=== PATIENT | male | born 1975 | race African-American/Black ===

== ENCOUNTER 2019-12-13 00:31 | Inpatient (IN) | payer MEDICAID ==
[~2019-12-13] VITALS: Ht 177.8 cm; Wt 86.5 kg
[2019-12-13] VITALS (83 sets, daily range): BP systolic 111–232; BP diastolic 75–160; Ht 177.8 cm; Wt 86.5 kg
[2019-12-13] MEDS ORDERED: BP MED (00:44)
--- NOTE | 2019-12-13 01:17 | NUR ---
SECOND NITRO GIVEN AFTER B/P RECHECK 244/160.
--- NOTE | 2019-12-13 01:26 | NUR ---
B/P 210/129. 3'D NITRO GIVEN.
--- NOTE | 2019-12-13 01:33 | NUR ---
B/P 195/137 AFTER 3'D NITRO. WILL ALERT DOCTOR.
[2019-12-13 01:41] LABS: BASOPHILS 0.4 % (0-2); EOSINOPHILS 1.3 % (0-7); HEMATOCRIT 38.9 % (42.0-54.0); HEMOGLOBIN 13.9 g/dL (13.5-17.5); IMMATURE GRANULOCYTES 0.4 % (0-5); LYMPHOCYTES 19.2 % (15-50); MCH 32.6 pg (26.0-34.0); MCHC 35.7 g/dL (31.0-37.0); MCV 91.3 fL (80.0-100.0); MEAN PLATELET VOLUME 10.6 fL (7.4-10.4); MONOCYTES 5.9 % (2-11); NEUTROPHILS 72.8 % (40-80); PLATELET COUNT 262 10x3/uL (130-400); RBC 4.26 10x6/uL (4.20-6.10); RDW 13.7 % (11.5-14.5); WBC 11.2 10x3/uL (4.8-10.8)
[2019-12-13 02:00] LABS: APTT 36.2 SECONDS (22.8-39.4); INR 1.02 (0.85-1.17); PROTIME 13.3 SECONDS (11.6-15.0)
[2019-12-13 02:01] LABS: D-DIMER-QUANTITATIVE 1.37 ug/mLFEU (0.20-0.54)
[2019-12-13 02:06] LABS: ALBUMIN 2.9 g/dL (3.4-5.0); ALKALINE PHOSPHATASE 116 U/L (30-120); ALT (SGPT) 18 U/L (10-68); BILIRUBIN - TOTAL 0.69 mg/dL (0.2-1.3); CALC OSMOLALITY 277 mosm/kg (275-300); CALCIUM 7.8 mg/dL (8.5-10.1); CARBON DIOXIDE 23.5 mmol/L (21.0-32.0); CHLORIDE - SERUM 100 mmol/L (98-107); CKMB 1.8 U/L (0.0-3.6); CREATINE KINASE 298 UL (21-232); CREATININE - SERUM 5.8 mg/dL (0.6-1.3); GLUCOSE 116 mg/dL (74-106); MAGNESIUM - SERUM 1.5 mg/dL (1.8-2.4); PRO BNP 13139 pg/mL (0-125); SODIUM 135 mmol/L (136-145); UREA NITROGEN 31 mg/dL (7-18); eGFR NON AFRICAN AMERICAN 11 mL/min (90-120)
[2019-12-13 02:11] LABS: UDS - AMPHET NEGATIVE QUAL (NEGATIVE); UDS - BARB NEGATIVE QUAL (NEGATIVE); UDS - BENZO NEGATIVE QUAL (NEGATIVE); UDS - COCAINE NEGATIVE QUAL (NEGATIVE); UDS - OPIATE NEGATIVE QUAL (NEGATIVE); UDS - PCP NEGATIVE QUAL (NEGATIVE); UDS - THC NEGATIVE QUAL (NEGATIVE)
[2019-12-13 02:14] LABS: BILIRUBIN NEGATIVE (NEGATIVE); KETONE NEGATIVE (NEGATIVE); NITRITE NEGATIVE (NEGATIVE); UROBILINOGEN NORMAL mg/dL (< 2)
[2019-12-13 02:16] LABS: BACTERIA FEW HPF (NONE SEEN); EPITHELIAL CELLS 0-5 /hpf (0-5); WHITE CELLS - URINE 0-5 HPF (0-1)
[2019-12-13 02:22] LABS: POTASSIUM - SERUM 2.6 mmol/L (3.5-5.1); TROPONIN-I 0.094 ng/mL (0.000-0.060)
--- NOTE | 2019-12-13 03:34 | NUR ---
PT STATES FEELING SOME BETTER. HAS VOIDED 450 CC'S.
--- NOTE | 2019-12-13 03:52 | NUR ---
COVID SWAB COLLECTED FOR ADMISSION. CVICU MADE AWARE.
[2019-12-13 04:53] LABS: BASOPHILS 0.5 % (0-2); EOSINOPHILS 0.6 % (0-7); HEMATOCRIT 40.4 % (42.0-54.0); HEMOGLOBIN 14.2 g/dL (13.5-17.5); IMMATURE GRANULOCYTES 0.5 % (0-5); LYMPHOCYTES 16.6 % (15-50); MCH 32.5 pg (26.0-34.0); MCHC 35.1 g/dL (31.0-37.0); MCV 92.4 fL (80.0-100.0); MEAN PLATELET VOLUME 10.2 fL (7.4-10.4); MONOCYTES 4.6 % (2-11); NEUTROPHILS 77.2 % (40-80); PLATELET COUNT 268 10x3/uL (130-400); RBC 4.37 10x6/uL (4.20-6.10); RDW 13.7 % (11.5-14.5); WBC 12.9 10x3/uL (4.8-10.8)
[2019-12-13 05:47] LABS: ALBUMIN 2.9 g/dL (3.4-5.0); BILIRUBIN - TOTAL 0.84 mg/dL (0.2-1.3); CALCIUM 7.9 mg/dL (8.5-10.1); CARBON DIOXIDE 24.7 mmol/L (21.0-32.0); CREATININE - SERUM 5.7 mg/dL (0.6-1.3); PROTEIN - SERUM 7.1 g/dL (6.4-8.2)
[2019-12-13 05:48] LABS: ANION GAP 14.2 mmol/L (8-16); MAGNESIUM - SERUM 1.9 mg/dL (1.8-2.4); POTASSIUM - SERUM 2.9 mmol/L (3.5-5.1); TROPONIN-I 0.097 ng/mL (0.000-0.060)
--- NOTE | 2019-12-13 08:06 | NUR ---
NTG DRIP INCREASED TO 35MCG/MIN. BP 156/115 AND HR 117 AFTER BEING UP TO BR.
--- NOTE | 2019-12-13 09:40 | NUR ---
WORSENING RALES AND SOB. ADRIANA TY APRN HERE AND INFORMED OF HR, BP, K+ AND MG. ORDERS TAKEN.
--- NOTE | 2019-12-13 10:00 | NUR ---
LOPRESSOR 5MG AND BUMEX 2MG IVP GIVEN. CONTINUES TO HAVE SEVERE SOB. DIAPHORETIC. INCREASING NTG DRIP BY 5MCG/MIN FOR HYPERTENSION. O2 INCREASED TO 6L/M SPO2 OF 88%.
--- NOTE | 2019-12-13 10:15 | NUR ---
ADRIANA TY APRN INFORMED OF CONTINUED HYPERTENTION, TACHYCARDIA AND SOB. REPEAT LOPRESSOR 5MG IVP. RESPIRATORY HERE. PLACED ON NON-REBREATHER WITH INCREASE OF SPO2 TO 94%
--- NOTE | 2019-12-13 10:45 | NUR ---
VERY ANXIOUS. THRASHING IN BED. HR 120-130 SINUS TACH. BP 212/136. NTG DRIP NOW AT 50MCG/MIN WITHOUT EFFECT ON BP. ADRIANA TY PAGED. [facility] 10MEQ RIDER 1 OF 4 IN PROGRESS.
--- NOTE | 2019-12-13 11:51 | NUR ---
DR. CABALLERO NOTIFIED OF CONSULT AND PT CONDITION. ORDERS FOR BIPAP 14/7 AT 100% RECEIVED.
--- NOTE | 2019-12-13 12:00 | NUR ---
PLACED ON BIPAP BY RT.
--- NOTE | 2019-12-13 12:30 | NUR ---
RESTING WITH EYES CLOSED. RESPITATORY RATE IN 40S DOWN FROM 60S.
--- NOTE | 2019-12-13 13:00 | NUR ---
ABG SHOW PO2 OF 260. PLACED BACK ON NC AT 10L/M. RENAL DIET SERVED.
--- NOTE | 2019-12-13 15:30 | NUR ---
UP TO BEDSIDE COMMODE. INSTRUCTED TO CALL FOR HELP BEFORE GETTING UP. RETURNED TO BED WITHOUT ASSIST. SOFT STOOL AND URINE EXPELLED.
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
--- NOTE | 2019-12-13 17:30 | NUR ---
CONTINUES TO DESAT. REFUSING O2. SINUS TACH, HYPERTENSIVE. SEE VITAL SIGNS.
--- NOTE | 2019-12-13 17:52 | NUR ---
patient stated he did want to be a full code. refusal of bipap and vent at this time. patient breathing 50 breaths a minute. paged roland.
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
--- NOTE | 2019-12-13 18:55 | NUR ---
JANELL CHOW, YAW, HERE. SEDATED AMD ORALLY INTUBATED. WRIST RESTRAINTS ON BILATERALLY.
--- NOTE | 2019-12-13 19:10 | NUR ---
REPORT TO ISAÍAS CONTRERAS RN
[2019-12-14] VITALS (22 sets, daily range): BP systolic 110–147; BP diastolic 59–97
[2019-12-14 05:04] LABS: BASOPHILS 0.4 % (0-2); EOSINOPHILS 0.2 % (0-7); HEMATOCRIT 35.7 % (42.0-54.0); HEMOGLOBIN 12.4 g/dL (13.5-17.5); IMMATURE GRANULOCYTES 0.4 % (0-5); LYMPHOCYTES 13.7 % (15-50); MCH 32.4 pg (26.0-34.0); MCHC 34.7 g/dL (31.0-37.0); MCV 93.2 fL (80.0-100.0); MEAN PLATELET VOLUME 10.7 fL (7.4-10.4); MONOCYTES 5.2 % (2-11); NEUTROPHILS 80.1 % (40-80); PLATELET COUNT 215 10x3/uL (130-400); RBC 3.83 10x6/uL (4.20-6.10); RDW 13.8 % (11.5-14.5)
[2019-12-14 05:31] LABS: ALBUMIN 2.5 g/dL (3.4-5.0); BILIRUBIN - TOTAL 0.38 mg/dL (0.2-1.3); CARBON DIOXIDE 21.7 mmol/L (21.0-32.0); CREATININE - SERUM 6.1 mg/dL (0.6-1.3); PHOSPHOROUS 4.1 mg/dL (2.5-4.9); PROTEIN - SERUM 5.9 g/dL (6.4-8.2)
[2019-12-14 05:37] LABS: ANION GAP 16.3 mmol/L (8-16); MAGNESIUM - SERUM 2.8 mg/dL (1.8-2.4)
--- NOTE | 2019-12-14 10:58 | NUR ---
PT TRANSFERED TO 2301. REPORT GIVEN TO MICHELLE VANCE.
--- NOTE | 2019-12-14 23:46 | NUR ---
PT.S MOM CALLED, PPROVIDED PASSCODE AND WAS GIVEN AN UPDATE
[2019-12-15] VITALS (22 sets, daily range): BP systolic 114–157; BP diastolic 77–110
[2019-12-15 05:15] LABS: BASOPHILS 0.8 % (0-2); EOSINOPHILS 2.2 % (0-7); HEMATOCRIT 31.3 % (42.0-54.0); HEMOGLOBIN 10.9 g/dL (13.5-17.5); IMMATURE GRANULOCYTES 0.6 % (0-5); LYMPHOCYTES 31.2 % (15-50); MCH 32.9 pg (26.0-34.0); MCHC 34.8 g/dL (31.0-37.0); MCV 94.6 fL (80.0-100.0); MEAN PLATELET VOLUME 10.3 fL (7.4-10.4); MONOCYTES 6.3 % (2-11); NEUTROPHILS 58.9 % (40-80); PLATELET COUNT 219 10x3/uL (130-400); RBC 3.31 10x6/uL (4.20-6.10)
[2019-12-15 05:32] LABS: WBC 7.1 10x3/uL (4.8-10.8)
[2019-12-15 05:43] LABS: ALBUMIN 2.2 g/dL (3.4-5.0); BILIRUBIN - TOTAL 0.45 mg/dL (0.2-1.3); CARBON DIOXIDE 22.7 mmol/L (21.0-32.0); CREATININE - SERUM 6.3 mg/dL (0.6-1.3); MAGNESIUM - SERUM 2.1 mg/dL (1.8-2.4); PROTEIN - SERUM 6.1 g/dL (6.4-8.2)
[2019-12-15 06:51] LABS: ANION GAP 15.2 mmol/L (8-16); PHOSPHOROUS 2.9 mg/dL (2.5-4.9); POTASSIUM - SERUM 4.9 mmol/L (3.5-5.1)
[2019-12-15 06:52] LABS: CALCIUM 6.8 mg/dL (8.5-10.1)
--- NOTE | 2019-12-15 07:00 | NUR ---
AM ROUNDS COMPLETED. INTRODUCED MYSELF TO PT PRIMARY RN FOR TODAYS SHIFT. PT IS SEDATED AND ON VENT. VSS AND BEING MONITERED. SHIFT ASSESSMENT COMPLETED. NASH DRAINING CLEAR YELLOW URINE TO GRAVITY OFF L.SIDE OF BED. PT HAS A L.HAND PIV WITH BUMEX INFUSING. PT HAS A L.UPPER ARM PIV WITH NS AND KCL @50ML/HR INFUSING. PT HAS A R.FA PIV WITH FENTANYL DRIP AND PROPOFOL INFUSING. ALL SITES HAVE SWAB CAPS AND DRSG ADHERED TO SKIN CDI. SCDS IN PLACE. NO IMMEDIATE NEEDS NOTED AT THIS TIME. WILL REVIEW LABS, CHART AND ORDERS AND BEGIN PLAN OF CARE.
--- NOTE | 2019-12-15 09:15 | NUR ---
REPOSITIONED PT IN BED FOR COMFORT. PT AWAKE AT THIS TIME AND HAS EYES OPEN BUT WILL NOT STAY AWAKE OR FOLLOW COMMANDS. NO NEEDS IDENTIFIED AT THIS TIME. WILL CPOC.
--- NOTE | 2019-12-15 10:48 | NUR ---
Nutrition follow-up: Pt now in ICU; intubated, sedated with propofol @ 19 ml/hr Labs reviewed Wt: 189# Recommend starting Nepro @ 10 ml/hr with increase to 40 ml/hr RDN following.
[2019-12-15 12:24] LABS: COMPLEMENT C4 43.7 mg/dL (17.4-52.2)
[2019-12-15 13:07] LABS: ERYTHROCYTE SEDIMENTATION RATE 101 mm/hr (0-15)
--- NOTE | 2019-12-15 14:37 | NUR ---
REPOSITIONED PT IN BED FOR COMFORT. PT DOING WELL AND VSS. NO IMMEDIATE NEEDS NOTED AT THIS TIME. PT REMAINS VERY CALM AND SEDATED. WILL CPOC.
--- NOTE | 2019-12-15 16:23 | NUR ---
WEANED PTS FENTANYL DRIP TO 200MCG/HR HE WILL BARELY AROUSE AND IS JUST VERY SEDATED. HOPEFULLY WILL BE ABLE TO WEAN OFF SEDATION AND TRIAL CPAP TOMORROW HE IS IMPROVING SO WELL. FAMILY UPDATED. NO IMMEDIATE NEEDS. WILL CTM.
--- NOTE | 2019-12-15 16:55 | EC ---
PATIENT:JINA DELUNA DATE OF SERVICE: 12/13/19 SEX: M MEDICAL RECORD: [id number] DATE OF : 75 LOCATION:[facility] AGE OF PATIENT: 44 ADMISSION DATE: 12/13/19 REFERRING PHYSICIAN: INTERPRETING PHYSICIAN: IDANIA LEY MD ECHOCARDIOGRAM REPORT ECHO CHARGES 4 ECHO COMPLETE Date: 12/13/19 CLINICAL DIAGNOSIS: CHF ECHOCARDIOGRAPHIC MEASUREMENTS (adult normal given) AC root (d.<3.7cm) 3.0 cm LV Septum d (<1.2 cm> 0.9 cm Valve Excursion 2.0 cm LV Septum (systole) 1.1 cm Left Atria (s.<4.0cm> 4.9 cm LVPW d(<1.2cm) 0.9 cm RV (d.<2.3cm) 2.3 cm LVPW (sytole) 1.1 cm LV diastole(<5.6CM) 5.5 cm MV E-F(>70mm/sec) cm LV systole 4.0 cm LVOT Diameter 1.8 cm MV exc.(>10mm) 1.3 cm Est.ejection fraction (50-75%) % DOPPLER: LVIT cm/sec A 48 cm/sec E 151 cm/sec LA cm/sec RVSP 21 mmHg LVOT 75 cm/sec AOP1/2T m/s Asc. Ao 105 cm/sec RVOT 59 cm/sec RA cm/sec PA 79 cm/sec AV Gradient Peak 4.4 mmHg AV Mean 2.7 mmHg AV Area 1.7 cm MV Gradient Peak 9.7 mmHg MV Mean 4.5 mmHg MV Area cm COMMENTS: Risk Control Consultant: Anaya BRANDON Plumbing Designer: 3 Dr. Cuevas TAPE# PACS Pericardial Effusion N DATE OF SERVICE: Adequate 2D, color flow imaging, spectral Doppler, and M-Mode. No LVH. LV internal dimensions are normal. LV is mildly globally hypo with EF mildly reduced at 40% to 45%. Aortic valve is tricuspid. No evidence of stenosis by Doppler interrogation. Left atrium is dilated at 4.9 cm. Mitral valve shows no prolapse. Mild MR. Right-sided chambers are grossly normal. Trace TR. ECHOCARDIOGRAM REPORT [id number] JINA DELUNA TRANSINT:[id number] Voice Confirmation ID: [id number] DOCUMENT ID: [id number] IDANIA LEY MD at 1655 CC: [id number] DICTATION DATE: 12/14/19 0837 SHAFT REPAIRER: 12/14/19 1112 ADM IN [place] [id number] [place] [id number]
--- NOTE | 2019-12-15 18:49 | NUR ---
REPOSITIONED PT IN BED TO RELIEVE PRESSURE OFF L.SIDE. VSS AND BEING MONITERED. PT REMAINS CALM AND SEDATED WEANED PROPOFOL A LITTLE MORE DOWN AND WILL LEAVE RESTRAINTS UN-TIED PT IS REMAINING CALM AND NOT TRYING TO PULL AT ANY LINES. WILL CPOC.
--- NOTE | 2019-12-15 21:00 | NUR ---
PT SEDATED ON VENT. FAMILY MEMBER SPOKEN WITH, PASSWORD VALIDATED. UPDATED ON PT STATUS.
[2019-12-16] VITALS (28 sets, daily range): BP systolic 135–206; BP diastolic 67–135
[2019-12-16 04:50] LABS: BASOPHILS 0.4 % (0-2); EOSINOPHILS 2.2 % (0-7); IMMATURE GRANULOCYTES 0.5 % (0-5); LYMPHOCYTES 18.2 % (15-50); MCH 32.2 pg (26.0-34.0); MCHC 33.8 g/dL (31.0-37.0); MCV 95.5 fL (80.0-100.0); MONOCYTES 5.6 % (2-11); NEUTROPHILS 73.1 % (40-80); RDW 13.9 % (11.5-14.5)
[2019-12-16 05:05] LABS: WBC 9.6 10x3/uL (4.8-10.8)
[2019-12-16 05:06] LABS: HEMOGLOBIN 13.5 g/dL (13.5-17.5); PLATELET COUNT 291 10x3/uL (130-400); RBC 4.19 10x6/uL (4.20-6.10)
[2019-12-16 05:26] LABS: BILIRUBIN - TOTAL 0.35 mg/dL (0.2-1.3); CALCIUM 8.1 mg/dL (8.5-10.1); CARBON DIOXIDE 22.7 mmol/L (21.0-32.0); CREATININE - SERUM 6.7 mg/dL (0.6-1.3)
[2019-12-16 05:30] LABS: ALBUMIN 2.8 g/dL (3.4-5.0); ANION GAP 20.4 mmol/L (8-16); POTASSIUM - SERUM 3.1 mmol/L (3.5-5.1)
--- NOTE | 2019-12-16 07:00 | NUR ---
REC'D REPORT AND RESUMED CARE, ETT TO VENTILATION AND SECUREC, OGT CLAMPED, SAT 98%, DBP 114, OTHER VSS, AROUSES TO VERBAL STIMUL, DOES NOT FOLLOW COMMANDS, NASH TO GRAVITY, WITH JUN DRAINAGE TO BAG, ASSESSMENT COMPLETED PER FLOWSHEET, WILL CONTINUE WITH POC
--- NOTE | 2019-12-16 09:00 | NUR ---
MORNING MEDS GIVEN PER MAR FLOWSHEET, TOLERATED WITHOUT DIFFICULTY
[2019-12-16 09:12] LABS: ANA REFLEX - DIRECT Negative (Negative)
--- NOTE | 2019-12-16 09:45 | NUR ---
CHANGED TO CPAP ON VENT BY RT
--- NOTE | 2019-12-16 10:00 | NUR ---
ADRIANA TY APN AT BEDSIDE, STATUS UPDATE, NEW ORDER FOR METOPROLOL 5 MG NOW AND Q 4 HOURS
--- NOTE | 2019-12-16 11:38 | NUR ---
AT BEDSIDE PATIENT RAISING UP AND REACHING FOR ETT, UNABLE TO REDIRECT, CALLED SEVERAL NURSES TO BEDSIDE, UNABLE TO CONTROL, SEDATION FENTANYL AND PROPOFAL BACK ON, WRIST RESTRAINTS IN PLACE, WILL CONTINUE WITH POC
--- NOTE | 2019-12-16 11:57 | NUR ---
DR DIAS AT BEDSIDE, STATES HE WILL WAIT UNTIL PATIENT IS EXTUBATED TO GET MORE OF HIS HISTORY BEFORE MAKING THE DECISION TO START HD
[2019-12-16 12:11] LABS: SPE - A/G RATIO 0.9 (0.7-1.7); SPE - ALBUMIN 2.9 g/dL (2.9-4.4); SPE - ALPHA-1 GLOBULIN 0.4 g/dL (0.0-0.4); SPE - ALPHA-2 GLOBULIN 1.2 g/dL (0.4-1.0); SPE - BETA GLOBULIN 0.8 g/dL (0.7-1.3); SPE - GAMMA GLOBULIN 0.8 g/dL (0.4-1.8); SPE - M-SPIKE Not Observed g/dL (Not Observed); SPE - TOTAL PROTEIN 6.1 g/dL (6.0-8.5)
[2019-12-16 12:11] LABS: UPE RAND - ALBUMIN 37.9 % (()); UPE RAND - ALPHA 1 GLOBULIN 9.1 % (()); UPE RAND - ALPHA 2 GLOBULIN 21.6 % (()); UPE RAND - BETA GLOBULIN 20.8 % (()); UPE RAND - GAMMA GLOBULIN 10.7 % (())
--- NOTE | 2019-12-16 13:30 | NUR ---
EXTUBATED BY RT, NOW ON 3L NC, ORAL CARE AND SUCTION COMPLETED, KICKING AND PULLING AGAINST RESTRAINTS, NO EASILY REDIRECTED, DANGER TO SELF AND OTHERS, UNABLE TO KEEP SAFE, KEPT RESTRAINTS ON
--- NOTE | 2019-12-16 17:23 | NUR ---
DR CABALLERO MAKING ROUNDS, BP 210/114, ORDERED ADRIANA PEREZ WITH CARDIOLOGY ON SITE, IN AGREEMENT WITH PATIENCE SILVERMAN, NEW ORDER PLACED
[2019-12-17] VITALS (69 sets, daily range): BP systolic 124–167; BP diastolic 81–114
[2019-12-17 03:25] LABS: BASOPHILS 0.1 % (0-2); EOSINOPHILS 0 % (0-7); HEMATOCRIT 42.9 % (42.0-54.0); HEMOGLOBIN 14.7 g/dL (13.5-17.5); IMMATURE GRANULOCYTES 0.3 % (0-5); LYMPHOCYTES 6.4 % (15-50); MCH 32.3 pg (26.0-34.0); MCHC 34.3 g/dL (31.0-37.0); MCV 94.3 fL (80.0-100.0); MEAN PLATELET VOLUME 9.6 fL (7.4-10.4); MONOCYTES 3.2 % (2-11); PLATELET COUNT 317 10x3/uL (130-400); RBC 4.55 10x6/uL (4.20-6.10); RDW 13.5 % (11.5-14.5)
[2019-12-17 03:46] LABS: ALBUMIN 3.2 g/dL (3.4-5.0); CALCIUM 8.6 mg/dL (8.5-10.1); CARBON DIOXIDE 22.6 mmol/L (21.0-32.0); CREATININE - SERUM 7.4 mg/dL (0.6-1.3); PROTEIN - SERUM 9.1 g/dL (6.4-8.2)
[2019-12-17 03:59] LABS: BILIRUBIN - TOTAL 0.45 mg/dL (0.2-1.3)
[2019-12-17 04:01] LABS: ANION GAP 21.2 mmol/L (8-16); POTASSIUM - SERUM 3.8 mmol/L (3.5-5.1)
--- NOTE | 2019-12-17 11:06 | NUR ---
Nutrition Follow-up: Extubated yesterday. Swallow study this AM recs mech soft with ground meat/gravy and nectar thick liquids. Diet: Diabetic, Mech Soft with Ground Meat/Gravies, Light Oak Thick Liquids extra gravies, sauces, and/or condiments Wt: 182# (12/16) Labs noted: Na 147, K+ 3.8, Glu 164, Alb 3.2 Meds noted: Florajen, Pepcid, Bumex, electrolyte protocol -Encourage PO intake and honor food preferences within diet restrictions. -Monitor wt. -RD following.
[2019-12-17 11:12] LABS: ANTI-GLOMERULAR BASMENT MEMBRN 3 units (0-20)
[2019-12-17 16:09] LABS: ANCA - ANTIMYELOPEROXIDASE <9.0 U/mL (0.0-9.0); ANCA - ANTIPROTEINASE 3 <3.5 U/mL (0.0-3.5); ANCA - ATYPICAL <1:20 titer (Neg:<1:20); ANCA - CYTOPLASMIC <1:20 titer (Neg:<1:20); ANCA - PERINUCLEAR <1:20 titer (Neg:<1:20)
[2019-12-18] VITALS (66 sets, daily range): BP systolic 132–166; BP diastolic 74–102
[2019-12-18 03:55] LABS: BASOPHILS 0.3 % (0-2); EOSINOPHILS 0.5 % (0-7); HEMATOCRIT 39.6 % (42.0-54.0); HEMOGLOBIN 13.6 g/dL (13.5-17.5); IMMATURE GRANULOCYTES 0.3 % (0-5); MCH 32.4 pg (26.0-34.0); MCHC 34.3 g/dL (31.0-37.0); MCV 94.3 fL (80.0-100.0); MEAN PLATELET VOLUME 9.5 fL (7.4-10.4); MONOCYTES 6.3 % (2-11); NEUTROPHILS 76.6 % (40-80); PLATELET COUNT 314 10x3/uL (130-400); RDW 13.5 % (11.5-14.5); WBC 11.9 10x3/uL (4.8-10.8)
[2019-12-18 04:47] LABS: PROTEIN - URINE 120.3 mg/dL (0.0-11.9)
[2019-12-18 05:47] LABS: ALKALINE PHOSPHATASE 81 U/L (30-120); ALT (SGPT) 18 U/L (10-68); BILIRUBIN - TOTAL 0.15 mg/dL (0.2-1.3); CALCIUM 8.2 mg/dL (8.5-10.1); CHLORIDE - SERUM 103 mmol/L (98-107); GLUCOSE 123 mg/dL (74-106); POTASSIUM - SERUM 3.6 mmol/L (3.5-5.1); SODIUM 137 mmol/L (136-145)
[2019-12-18 05:49] LABS: CALC OSMOLALITY 273 mosm/kg (275-300); CREATININE - SERUM 0.6 mg/dL (0.6-1.3); UREA NITROGEN 10 mg/dL (7-18)
[2019-12-18 05:50] LABS: ALBUMIN 1.8 g/dL (3.4-5.0); CARBON DIOXIDE 28.8 mmol/L (21.0-32.0); PROTEIN - SERUM 5.8 g/dL (6.4-8.2); eGFR NON AFRICAN AMERICAN > 90 mL/min (90-120)
[2019-12-18 09:39] LABS: CALCIUM 8.2 mg/dL (8.5-10.1)
[2019-12-18 09:41] LABS: CREATININE - SERUM 6.3 mg/dL (0.6-1.3)
[2019-12-18 09:44] LABS: ANION GAP 19.6 mmol/L (8-16); CARBON DIOXIDE 19.3 mmol/L (21.0-32.0); POTASSIUM - SERUM 2.9 mmol/L (3.5-5.1)
--- NOTE | 2019-12-18 09:47 | NUR ---
PAGED PHARMACOVIGILANCE SPECIALIST RENAL TO REPORT CRITICAL LAB.
--- NOTE | 2019-12-18 10:29 | NUR ---
DR DIAS ON UNIT, ORDERS IN FOR K+ REPLACEMENT IVPB, WILL FOLLOW ORDERS.
--- NOTE | 2019-12-18 15:50 | NUR ---
1445 PATIENT GOT OOB, PULLED OUT BOTH IV'S AND WAS NOT FOLLOWING DIRECTION. PATIENT PLACED BACK IN BED, FULL LINEN CHANGE AND ROOM CLEAN NECESSARY AND PROVIDED. RESTRAINTS APPLIED. ATTEMPT FOR PLACEMENT OF NEW PIV X2 UNSUCCESSFUL DUE TO PATIENT JERKING AWAY, THIRD ATTEMPT SUCCESSFUL ON LEFT UPPER ARM AND THIS WAS SALINE LOCKED. BP STABLE WITHOUT CARDENE GTT, PO CARDENE ORDERED BY DR CABALLERO TO START AT 1500 SO THIS WAS GIVEN AND DR CABALLERO NOTIFIED HE WAS STILL ON UNIT. 1543 RENAL TELEPHOTO ENGINEER PAGED TO UPDATE AND ASK IF THEY WANT TO CONTINUE THE 1/2 NS PT TOLERATING PO VERY WELL NOW. 1546 PT MOTHER CALLED IN AND UPDATE PROVIDED, SHE SPOKE WITH PATIENT OVER PHONE. PT CO RESTRAINTS AND WANTS THEM OF, EXPLAINED THAT HE NEEDED TO GAIN TRUST FROM NURSING STAFF AGAIN BEFORE HE COULD HAVE THEM REMOVED AND THAT HE WOULD HAVE TO BE COOPERATIVE AND BE RESPECTFUL.
--- NOTE | 2019-12-18 16:01 | NUR ---
RECIEVED CALL BACK FROM DR DIAS, ORDERS RECIEVED TO DC 1/2 NS, AND TO START A CATAPRES 0.3MG PATCH. STATED HE WILL ASSESS MEDICATIONS AND MAKE CHANGES IF NEEDED LATER THIS EVENING.
[2019-12-18 17:35] LABS: ANION GAP 19.2 mmol/L (8-16); CALCIUM 7.2 mg/dL (8.5-10.1); CREATININE - SERUM 6.1 mg/dL (0.6-1.3); POTASSIUM - SERUM 3.2 mmol/L (3.5-5.1)
--- NOTE | 2019-12-18 18:14 | NUR ---
CALLED AND GAVE REPORT TO MARIA ELENA ON MED 2. WILL TRANSFER PATIENT.
--- NOTE | 2019-12-18 18:32 | NUR ---
RECEIVED PT FROM ICU. PT IS AA AND CONFUSED TO SITUATION, PERSON, AND PLACE. NO S/S OF DISTRESS NOTED. PT DENIES ANY NEEDS AT THIS TIME. MOM AT BEDSIDE. WILL CTM.
--- NOTE | 2019-12-18 20:18 | NUR ---
INITIAL REPORT AND ROUNDS COMPLETED. SEE ASSESSMENTS. PT RESTING IN BED WITH NO DISTRESS. CALL LIGHT IN REACH. CPOC. ASSISTED UP TO BATHROOM TO HAVE BM. MOTHER AT BEDSIDE.
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
[2019-12-19 01:49] VITALS: BP 149/89
--- NOTE | 2019-12-19 07:10 | NUR ---
REPORT TO ONCOMING NURSE. NO CHANGE FROM INITIAL SHIFT ASSESSMENT. PT HAS RESTED THROUGH THE NIGHT. MOTHER AT BEDSIDE. CPOC. CALL LIGHT IN REACH.
[2019-12-19 07:46] LABS: BASOPHILS 0.6 % (0-2); EOSINOPHILS 2.7 % (0-7); HEMATOCRIT 37.6 % (42.0-54.0); HEMOGLOBIN 13.1 g/dL (13.5-17.5); IMMATURE GRANULOCYTES 0.5 % (0-5); LYMPHOCYTES 27.2 % (15-50); MCH 32.3 pg (26.0-34.0); MCHC 34.8 g/dL (31.0-37.0); MCV 92.6 fL (80.0-100.0); MEAN PLATELET VOLUME 9.1 fL (7.4-10.4); MONOCYTES 9.9 % (2-11); NEUTROPHILS 59.1 % (40-80); PLATELET COUNT 267 10x3/uL (130-400); RBC 4.06 10x6/uL (4.20-6.10); RDW 13.2 % (11.5-14.5)
[2019-12-19 07:47] LABS: WBC 8.6 10x3/uL (4.8-10.8)
[2019-12-19 07:54] VITALS: BP 151/99
[2019-12-19 08:06] LABS: MAGNESIUM - SERUM 1.9 mg/dL (1.8-2.4); PHOSPHOROUS 5.1 mg/dL (2.5-4.9)
[2019-12-19 12:54] LABS: ANION GAP 21.9 mmol/L (8-16); CALCIUM 7.6 mg/dL (8.5-10.1); CREATININE - SERUM 5.6 mg/dL (0.6-1.3); POTASSIUM - SERUM 3.9 mmol/L (3.5-5.1)
[2019-12-19 17:41] VITALS: BP 147/91
[2019-12-19 21:30] VITALS: BP 149/100
[2019-12-20 01:30] VITALS: BP 148/100
--- NOTE | 2019-12-20 03:32 | NUR ---
NOTE TO PHYSICIAN FROM PHARMACY HOTLINE: RECOMMENDED DOSAGE OF PEPCID SHOULD BE 10MG BID BASED ON RENAL CRITERIA.
[2019-12-20 04:00] VITALS: BP 139/96
[2019-12-20 04:35] VITALS: BP 144/95
[2019-12-20 09:39] VITALS: BP 125/84
--- NOTE | 2019-12-20 19:11 | NUR ---
RECEIVED BEDSIDE REPORT. ROUNDING COMPLETE. PATIENT IS ALERT. RESTING COMFORTABLY IN BED. RESPIRATIONS ARE EVEN AND UNLABORED. NO S/S OF DISTRESS. NO C/O PAIN. CALL LIGHT WITHIN REACH. WILL CPOC.
[2019-12-20 22:24] VITALS: BP 140/103
[2019-12-21 03:19] VITALS: BP 138/94
[2019-12-21 06:28] LABS: BASOPHILS 0.5 % (0-2); EOSINOPHILS 3.3 % (0-7); HEMATOCRIT 39.2 % (42.0-54.0); HEMOGLOBIN 13.4 g/dL (13.5-17.5); IMMATURE GRANULOCYTES 0.5 % (0-5); LYMPHOCYTES 33.3 % (15-50); MCH 31.8 pg (26.0-34.0); MCHC 34.2 g/dL (31.0-37.0); MCV 92.9 fL (80.0-100.0); MEAN PLATELET VOLUME 9.5 fL (7.4-10.4); MONOCYTES 7.6 % (2-11); NEUTROPHILS 54.8 % (40-80); PLATELET COUNT 287 10x3/uL (130-400); RBC 4.22 10x6/uL (4.20-6.10); RDW 13.1 % (11.5-14.5); WBC 7.5 10x3/uL (4.8-10.8)
[2019-12-21 06:43] LABS: ALBUMIN 2.7 g/dL (3.4-5.0); ANION GAP 15.5 mmol/L (8-16); BILIRUBIN - TOTAL 0.37 mg/dL (0.2-1.3); CALCIUM 8.3 mg/dL (8.5-10.1); CARBON DIOXIDE 22.6 mmol/L (21.0-32.0); PHOSPHOROUS 4.2 mg/dL (2.5-4.9); POTASSIUM - SERUM 4.1 mmol/L (3.5-5.1); PROTEIN - SERUM 7.1 g/dL (6.4-8.2)
[2019-12-21 06:59] VITALS: BP 136/85
[2019-12-21 07:00] VITALS: BP 128/102
[2019-12-21 10:30] VITALS: BP 128/90
[2019-12-21] MEDS ORDERED: NORVASC5 MG PO (12:24)
[2019-12-21] MEDS ORDERED: TOPROL XL50 MG PO (12:24)
[2019-12-21] MEDS ORDERED: CATAPRES0.3 MG PO (12:33)
--- NOTE | 2019-12-21 14:15 | MORECARE ---
CASE MANAGEMENT DISCHARGE SUMMARY PATIENT: JINA DELUNA UNIT: [id number] ADM DATE: 12/13/19 AGE: 44 : 75 SEX: M ROOM/BED: D.2118 AUTHOR: AMBER PRASAD PHYSICIAN: REFERRING PHYSICIAN: COLIN MCGREGOR MD DATE OF SERVICE: 12/21/19 Discharge Plan Patient Name: JINA DELUNA [facility] [facility] 1975 Planned Disposition: Home Anticipated Discharge Date: Discharge Date: Expected LOS: Initial Reviewer: [email or web address] Initial Review Date: 12/21/2019 Generated: 12/21/19 3:14 pm Patient Name: JINA DELUNA Page [id number] at 1415 All edits/amendments must be made on the electronic document DICTATION DATE: 12/21/19 1415 RIDE MECHANIC: MARKEL 12/21/19 1415 RPT#: [id number] DC DATE: STATUS: ADM IN [facility] [address] [place] [address] END OF REPORT
--- NOTE | 2019-12-21 14:21 | NUR ---
DC CANCELED DUE TO MRI RESULTS.
--- NOTE | 2019-12-21 14:26 | MORECARE ---
CASE MANAGEMENT DISCHARGE SUMMARY PATIENT: JINA DELUNA UNIT: [id number] ADM DATE: 12/13/19 AGE: 44 : 75 SEX: M ROOM/BED: D.7795 AUTHOR: SHANICEDOC PHYSICIAN: REFERRING PHYSICIAN: COLIN MCGREGOR MD DATE OF SERVICE: 12/21/19 Discharge Plan Patient Name: JINA DELUNA Facility: [facility]:[place] : 1975 Planned Disposition: Home Anticipated Discharge Date: Discharge Date: Expected LOS: Initial Reviewer: [email or web address] Initial Review Date: 12/21/2019 Generated: 12/21/19 3:25 pm Comments DCP- Discharge Planning Updated by [email or web address]: Frida Guillen on 12/21/19 1:[address] Patient Name: JINA DELUNA Admission Status: ER Accout number: [id number] Admission Date: 12-13-2019 : 1975 Admission Diagnosis:ACUTE KIDNEY FAILURE, UNSPECIFIED Attending: MECHE, Current LOS: 8 Anticipated DC Date: Planned Disposition: Home Primary Insurance: MEDICAID [place] Discharge Planning Comments: CM met with patient to complete initial dc planning assessment. CM educated patient on the CM role and verbal consent given by patient to complete assessment. CM verified patient's address, phone number, and emergency contact phone numbers. Patient lives at home alone. At discharge patient plans to return and feels this is a safe discharge. CM discussed availability of home health, rehab services, and medical equipment. Patient denied known discharge needs at this time. Transportation provider at discharge will be his friend. States he does not know his phone number. Patient's speech seems slurred and garbled at time and I have informed his nurse, Crystal . CM will continue to follow and will assist as needed with dc plans/needs. Power Plant Electrician: Frida Guillen DCPIA - Discharge Planning Initial Assessment Updated by [email or web address]: Frida Guillen on 12/21/19 2:18 pm * Is the patient Alert and Oriented? Yes * PCP None * Pharmacy [facility] [address] * Preadmission Environment Home Alone * ADLs Independent * Equipment None * List name and contact numbers for known caregivers / representatives who currently or will assist patient after discharge: Juan Pablo Bustillo - friend - unknown * Verbal permission to speak to the caregivers and representatives has been obtained from the patient. Yes * Community resources currently utilized None * Additional services required to return to the preadmission environment? No * Can the patient safely return to the preadmission environment? Yes * Has this patient been hospitalized within the prior 30 days at any hospital? No Last DP export: 12/21/19 1:15 p Patient Name: JINA DELUNA Page [phone] at 1426 All edits/amendments must be made on the electronic document DICTATION DATE: 12/21/191424 MACHINE TURNER: MARKEL 12/21/19 142 RPT#: [id number] DC DATE: STATUS: ADM IN [facility] [address] [place] [address] END OF REPORT
--- NOTE | 2019-12-21 14:47 | MORECARE ---
CASE MANAGEMENT DISCHARGE SUMMARY PATIENT: JINA DELUNA UNIT: [id number] ADM DATE: 12/13/19 AGE: 44 : 75 SEX: M ROOM/BED: D.0768 AUTHOR: AMBER PRASAD PHYSICIAN: REFERRING PHYSICIAN: COLIN MCGREGOR MD DATE OF SERVICE: 12/21/19 Discharge Plan Patient Name: JINA DELUNA Facility: [facility]:[place] : 1975 Planned Disposition: Home Anticipated Discharge Date: Discharge Date: Expected LOS: Initial Reviewer: [email or web address] Initial Review Date: 12/21/2019 Generated: 12/21/19 3:46 pm Comments DCP- Discharge Planning Updated by [email or web address]: Frida Guillen on 12/21/19 1:[address] Patient's mother has come in to visit. She states that patient lives with her mother. States that he is independent with all his care. Patient is ambulating without assist in room while I am in there. She states his PCP is Aleksandr Young in [place]. She denies known discharge needs at this time. Ruby Juarez - mother - [phone] DCP- Discharge Planning Updated by [email or web address]: Frida Marloy on 12/21/19 1:[address] Patient Name: JINA DELUNA Admission Status: ER Accout number: [id number] Admission Date: 12-13-2019 : 1975 Admission Diagnosis:ACUTE KIDNEY FAILURE, UNSPECIFIED Attending: MECHE, Current LOS: 8 Anticipated DC Date: Planned Disposition: Home Primary Insurance: MEDICAID [place] Discharge Planning Comments: CM met with patient to complete initial dc planning assessment. CM educated patient on the CM role and verbal consent given by patient to complete assessment. CM verified patient's address, phone number, and emergency contact phone numbers. Patient lives at home alone. At discharge patient plans to return and feels this is a safe discharge. CM discussed availability of home health, rehab services, and medical equipment. Patient denied known discharge needs at this time. Transportation provider at discharge will be his friend. States he does not know his phone number. Patient's speech seems slurred and garbled at time and I have informed his nurse, Crystal . CM will continue to follow and will assist as needed with dc plans/needs. Clinical Laboratory Service Teacher: Frida Guillen DCPIA - Discharge Planning Initial Assessment Updated by [email or web address]: Frida Guillen on 12/21/19 2:18 pm * Is the patient Alert and Oriented? Yes * PCP None * Pharmacy [facility] [address] * Preadmission Environment Home Alone * ADLs Independent * Equipment None * List name and contact numbers for known caregivers / representatives who currently or will assist patient after discharge: Juan Pablo Bustillo - friend - unknown * Verbal permission to speak to the caregivers and representatives has been obtained from the patient. Yes * Community resources currently utilized None * Additional services required to return to the preadmission environment? No * Can the patient safely return to the preadmission environment? Yes * Has this patient been hospitalized within the prior 30 days at any hospital? No Last DP export: 12/21/19 1:26 p Patient Name: JINA DELUNA Page [id number] at 1447 All edits/amendments must be made on the electronic document DICTATION DATE: 12/21/19 1446 HEDGE FUND TRADER: MARKEL 12/21/19 1446 RPT#: [id number] DC DATE: STATUS: ADM IN [facility] [address] [place] [address] END OF REPORT
[2019-12-21 15:00] VITALS: BP 143/96
--- NOTE | 2019-12-21 19:30 | NUR ---
RECEIVED BEDSIDE REPORT. ROUNDING COMPLETE. PATIENT ALERT AND PLEASANTLY CONFUSED. PATIENT RESTING COMFORTABLY IN BED. RESPIRATIONS ARE EVEN AND UNLABORED. NO S/S OF DISTRESS. NO C/O PAIN. CALL LIGHT WITHIN REACH. MOTHER AT BEDSIDE. WILL CPOC.
[2019-12-21 20:00] VITALS: BP 147/78
[2019-12-22] VITALS: BP 132/91
[2019-12-22 04:00] VITALS: BP 131/90
[2019-12-22 06:03] LABS: BASOPHILS 0.6 % (0-2); EOSINOPHILS 3.7 % (0-7); HEMATOCRIT 37.8 % (42.0-54.0); HEMOGLOBIN 12.8 g/dL (13.5-17.5); IMMATURE GRANULOCYTES 0.6 % (0-5); LYMPHOCYTES 33.8 % (15-50); MCH 31.4 pg (26.0-34.0); MCHC 33.9 g/dL (31.0-37.0); MCV 92.6 fL (80.0-100.0); MEAN PLATELET VOLUME 9.8 fL (7.4-10.4); MONOCYTES 5.9 % (2-11); NEUTROPHILS 55.4 % (40-80); PLATELET COUNT 281 10x3/uL (130-400); RBC 4.08 10x6/uL (4.20-6.10); RDW 13.1 % (11.5-14.5)
[2019-12-22 06:23] LABS: ALBUMIN 2.7 g/dL (3.4-5.0); ANION GAP 13.4 mmol/L (8-16); BILIRUBIN - TOTAL 0.21 mg/dL (0.2-1.3); CALCIUM 8.1 mg/dL (8.5-10.1); CREATININE - SERUM 4.9 mg/dL (0.6-1.3); PHOSPHOROUS 4.5 mg/dL (2.5-4.9); POTASSIUM - SERUM 4.4 mmol/L (3.5-5.1); PROTEIN - SERUM 6.8 g/dL (6.4-8.2)
[2019-12-22 07:42] VITALS: BP 121/83
[2019-12-22 14:21] VITALS: BP 141/92
--- NOTE | 2019-12-22 14:42 | NUR ---
OT NOTE: PT OUT OF ROOM IN AM, HOWEVER, MOM REPORTS THAT PT IS INDEP AND DOES NOT REQUIRE THERAPY AT THIS TIME JOHNIE LOZANO, OTR/L
[2019-12-22 16:16] VITALS: BP 152/103
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
[2019-12-22 20:00] VITALS: BP 146/100
--- NOTE | 2019-12-22 22:00 | NUR ---
PATIENT REMAINS STRUGGLING WITH WRIST RESTRAINTS AMD MAKING SEXUAL GESTURES TO THE NURSING STAFF AND HIS MOTHER. MOTHER PRAYING OVER PATIENT. PATIENT GIVEN SOMETHING TO DRINK. PULSE CHECK COMPLETE.
[2019-12-23] VITALS: BP 128/81
--- NOTE | 2019-12-23 03:20 | NUR ---
PATIENT GIVEN CRANBERRY JUICE TO DRINK WITH ASSISTANCE. PULSE CHECK COMPLETE
[2019-12-23 04:00] VITALS: BP 131/86
--- NOTE | 2019-12-23 04:17 | NUR ---
LEFT WRIST RELEASED FROM SOFT RESTRAINT.
--- NOTE | 2019-12-23 05:40 | NUR ---
PATIENTS RIGHT WRIST RELEASED FROM SOFT RESTRAINT.
[2019-12-23 05:46] LABS: BASOPHILS 0.4 % (0-2); EOSINOPHILS 2.3 % (0-7); HEMATOCRIT 37.5 % (42.0-54.0); HEMOGLOBIN 12.5 g/dL (13.5-17.5); IMMATURE GRANULOCYTES 0.5 % (0-5); LYMPHOCYTES 23.8 % (15-50); MCH 31.3 pg (26.0-34.0); MCHC 33.3 g/dL (31.0-37.0); MCV 93.8 fL (80.0-100.0); MEAN PLATELET VOLUME 10.1 fL (7.4-10.4); MONOCYTES 6.3 % (2-11); NEUTROPHILS 66.7 % (40-80); PLATELET COUNT 287 10x3/uL (130-400); RDW 13.3 % (11.5-14.5); WBC 7.7 10x3/uL (4.8-10.8)
[2019-12-23 06:27] LABS: ALBUMIN 2.9 g/dL (3.4-5.0); BILIRUBIN - TOTAL 0.31 mg/dL (0.2-1.3); CALCIUM 8.2 mg/dL (8.5-10.1); CARBON DIOXIDE 21.6 mmol/L (21.0-32.0); CREATININE - SERUM 5.1 mg/dL (0.6-1.3); PHOSPHOROUS 4.2 mg/dL (2.5-4.9); POTASSIUM - SERUM 4.6 mmol/L (3.5-5.1)
[2019-12-23 10:13] LABS: CREATININE - URINE 104.6 mg/dL (Not Estab.); MICROALBUMIN - URINE 184.8 ug/mL (Not Estab.)
--- NOTE | 2019-12-23 12:54 | NUR ---
Nutrition Follow-up: PO intake fluctuating. Ate ~25% of breakfast this AM; ~50% breakfast & 100% of lunch yesterday. ST following; diet upgraded to solids with thin liquids. Diet: Regular Wt: 190# (12/22) Labs noted: Ca 8.2, Alb 2.9 Meds noted: Pepcid, Florajen, KDur, electrolyte protocol -Encourage PO intake and honor food preferences within diet restrictions. -Offer nutrition supplements. -Monitor wt. -RD following.
--- NOTE | 2019-12-23 13:44 | NUR ---
PATIENT IS RESTING THIS AM. PATIENT HAS MOTHER AT BEDSIDE. PLAN OF CARE REVIEWED AND ASSESSMENT COMPLETED. PATIENT DENIES PAIN OR NEEDS. CALL LIGHT IN REACH
[2019-12-23 16:59] VITALS: BP 131/83
[2019-12-23 19:55] LABS: BILIRUBIN NEGATIVE (NEGATIVE); KETONE NEGATIVE (NEGATIVE); NITRITE NEGATIVE (NEGATIVE); UROBILINOGEN NORMAL mg/dL (< 2)
[2019-12-23 20:00] VITALS: BP 140/89
[2019-12-24 04:00] VITALS: BP 147/95
[2019-12-24 07:50] LABS: BASOPHILS 0.3 % (0-2); EOSINOPHILS 2.8 % (0-7); HEMATOCRIT 36.7 % (42.0-54.0); HEMOGLOBIN 12.2 g/dL (13.5-17.5); IMMATURE GRANULOCYTES 0.3 % (0-5); LYMPHOCYTES 30.5 % (15-50); MCH 31.5 pg (26.0-34.0); MCHC 33.2 g/dL (31.0-37.0); MCV 94.8 fL (80.0-100.0); MEAN PLATELET VOLUME 10.4 fL (7.4-10.4); MONOCYTES 7.3 % (2-11); NEUTROPHILS 58.8 % (40-80); PLATELET COUNT 285 10x3/uL (130-400); RBC 3.87 10x6/uL (4.20-6.10); RDW 13.3 % (11.5-14.5)
[2019-12-24 08:27] LABS: ALBUMIN 2.9 g/dL (3.4-5.0); ANION GAP 14.5 mmol/L (8-16); BILIRUBIN - TOTAL 0.18 mg/dL (0.2-1.3); CALCIUM 8.1 mg/dL (8.5-10.1); CARBON DIOXIDE 20.2 mmol/L (21.0-32.0); POTASSIUM - SERUM 4.7 mmol/L (3.5-5.1); PROTEIN - SERUM 6.2 g/dL (6.4-8.2)
--- NOTE | 2019-12-24 08:55 | EC ---
PATIENT:JINA DEULNA DATE OF SERVICE: 12/13/19 SEX: M MEDICAL RECORD: [id number] DATE OF : [birth year] LOCATION:D.M2 D.211 AGE OF PATIENT: 44 ADMISSION DATE: 12/13/19 REFERRING PHYSICIAN: INTERPRETING PHYSICIAN: IDANIA LEY MD ECHOCARDIOGRAM REPORT ECHO CHARGES 5 ECHO LIMITED Date: 12/22/19 CLINICAL DIAGNOSIS: CVA, STROKE ECHOCARDIOGRAPHIC MEASUREMENTS (adult normal given) AC root (d.<3.7cm) 0 cm LV Septum d (<1.2 cm> 0 cm Valve Excursion 2.0 cm LV Septum (systole) 1.1 cm Left Atria (s.<4.0cm> 0 cm LVPW d(<1.2cm) 0 cm RV (d.<2.3cm) 0 cm LVPW (sytole) 0 cm LV diastole(<5.6CM) 0 cm MV E-F(>70mm/sec) 0 cm LV systole 0 cm LVOT Diameter 0 cm MV exc.(>10mm) 0 cm Est.ejection fraction (50-75%) % DOPPLER: LVIT cm/sec A 0 cm/sec E 00 cm/sec LA cm/sec RVSP 0 mmHg LVOT 0 cm/sec AOP1/2T m/s Asc. Ao 0 cm/sec RVOT 0 cm/sec RA 0 cm/sec PA 0 cm/sec AV Gradient Peak 0 mmHg AV Mean 0 mmHg AV Area 0 cm MV Gradient Peak 0 mmHg MV Mean 00 mmHg MV Area cm COMMENTS: Chief [employer] Division: Anaya [facility] Sergeant At Arms: 3 Dr. Cuevas TAPE# PACS Pericardial Effusion N DATE OF SERVICE: BUBBLE STUDY TO RULE OUT ASD-VSD The patient's baseline echo shows normal LV function with EF of 50%. Bubble study performed and this shows no evidence of contrast cross-over with ASD, VSD or PFO. IMPRESSION: Negative bubble contrast study for shunt. ECHOCARDIOGRAM REPORT [id number] JINA DELUNA TRANSINT:[id number] Voice Confirmation ID: [id number] DOCUMENT ID: [id number] IDANIA LEY MD at 0855 CC: [id number] DICTATION DATE: 12/23/19 0756 WALL INSULATION SPRAYER: 12/23/19 0919 ADM IN [facility] [address] [place] [address]
--- NOTE | 2019-12-24 09:00 | NUR ---
ATIVAN GIVEN TO PATIENT FOR WANDERING IN HALLWAY AND REFUSING TO STAY IN ROOM AND REFUSING TO BE REDIRECTED.
--- NOTE | 2019-12-24 09:30 | NUR ---
HALDOL GIVEN TO PATIENT , FOUND ALMOST TO END OF HALLWAY DOORS AND BECAME COMBATIVE WHEN TRIED TO RETURN TO ROOM.
[2019-12-24 10:44] VITALS: BP 121/75
[2019-12-24] MEDS ORDERED: ASPIRIN325 MG PO (13:34)
[2019-12-24] MEDS ORDERED: ELIQUIS2.5 MG PO (13:34)
[2019-12-24] MEDS ORDERED: LIPITOR10 MG PO (14:34)
--- NOTE | 2019-12-24 14:47 | MORECARE ---
CASE MANAGEMENT DISCHARGE SUMMARY PATIENT: JINA DELUNA UNIT: [id number] ADM DATE: 12/13/19 AGE: 44 : 75 SEX: M ROOM/BED: D.7408 AUTHOR: SHANICEDOC PHYSICIAN: REFERRING PHYSICIAN: COLIN MCGREGOR MD DATE OF SERVICE: 12/24/19 Discharge Plan Patient Name: JINA DELUNA Facility: [facility]:[place] : 1975 Planned Disposition: Home Anticipated Discharge Date: Discharge Date: Expected LOS: Initial Reviewer: [email or web address] Initial Review Date: 12/21/2019 Generated: 12/24/19 3:46 pm DCP- Discharge Planning Updated by [email or web address]: Frida Mindy on 12/21/19 1:[address] Patient's mother has come in to visit. She states that patient lives with her mother. States that he is independent with all his care. Patient is ambulating without assist in room while I am in there. She states his PCP is Aleksandr Young in [place]. She denies known discharge needs at this time. Ruby Juarez - mother - [phone] DCP- Discharge Planning Updated by [id number]: Frida Guillen on 12/21/19 1:[address] Patient Name: JINA DELUNA Admission Status: ER Accout number: [id number] Admission Date: 12-13-2019 : 1975 Admission Diagnosis:ACUTE KIDNEY FAILURE, UNSPECIFIED Attending: MECHE, Current LOS: 8 Anticipated DC Date: Planned Disposition: Home Primary Insurance: MEDICAID [place] Discharge Planning Comments: CM met with patient to complete initial dc planning assessment. CM educated patient on the CM role and verbal consent given by patient to complete assessment. CM verified patient's address, phone number, and emergency contact phone numbers. Patient lives at home alone. At discharge patient plans to return and feels this is a safe discharge. CM discussed availability of home health, rehab services, and medical equipment. Patient denied known discharge needs at this time. Transportation provider at discharge will be his friend. States he does not know his phone number. Patient's speech seems slurred and garbled at time and I have informed his nurse, Crystal . CM will continue to follow and will assist as needed with dc plans/needs. Pre K Teacher: Frida Guillen DCPIA - Discharge Planning Initial Assessment Updated by [email or web address]: Frida Marloy on 12/21/19 2:18 pm * Is the patient Alert and Oriented? Yes * PCP None * Pharmacy [facility] [address] * Preadmission Environment Home Alone * ADLs Independent * Equipment None * List name and contact numbers for known caregivers / representatives who currently or will assist patient after discharge: Juan Pablo Bustillo - friend - unknown * Verbal permission to speak to the caregivers and representatives has been obtained from the patient. Yes * Community resources currently utilized None * Additional services required to return to the preadmission environment? No * Can the patient safely return to the preadmission environment? Yes * Has this patient been hospitalized within the prior 30 days at any hospital? No External Providers External Provider: [facility] Next Contact Date: Service Request Date: Service Type: Resolution: Reviewer: Comments: Last DP export: 12/21/19 1:47 p Patient Name: JINA DELUNA Page [phone] at 1447 All edits/amendments must be made on the electronic document DICTATION DATE: 12/24/191445 PATIENT APPOINTMENT COORDINATOR: MARKEL 12/24/191445 RPT#: [id number] DC DATE: STATUS: ADM IN [facility] [address] [place] [address] END OF REPORT
--- NOTE | 2019-12-24 14:57 | MORECARE ---
CASE MANAGEMENT DISCHARGE SUMMARY PATIENT: JINA DELUNA UNIT: [id number] ADM DATE: 12/13/19 AGE: 44 : 75 SEX: M ROOM/BED: D.3828 AUTHOR: SHANICEDOC PHYSICIAN: REFERRING PHYSICIAN: COLIN MCGREGOR MD DATE OF SERVICE: 12/24/19 Discharge Plan Patient Name: JINA DELUNA Facility: [facility]:[place] : 1975 Planned Disposition: Home Anticipated Discharge Date: Discharge Date: Expected LOS: Initial Reviewer: [email or web address] Initial Review Date: 12/21/2019 Generated: 12/24/19 3:56 pm Comments DCP- Discharge Planning Updated by [email or web address]: Frida Guillen on 12/24/19 1:[address] Received DC orders. I have called [facility] and spoke with Sukhi and natalya and order faxed for home health. CM will continue to follow and assist with discharge planning/needs. DCP- Discharge Planning Updated by [email or web address]: Frida Guillen on 12/21/19 1:[address] Patient's mother has come in to visit. She states that patient lives with her mother. States that he is independent with all his care. Patient is ambulating without assist in room while I am in there. She states his PCP is Aleksandr Young in [place]. She denies known discharge needs at this time. Ruby Juarez [facility] - [phone] DCP- Discharge Planning Updated by [email or web address]: Frida Guillen on 12/21/19 1:[address] Patient Name: JINA DELUNA Admission Status: ER Accout number: [id number] Admission Date: 12-13-2019 : 1975 Admission Diagnosis:ACUTE KIDNEY FAILURE, UNSPECIFIED Attending: MECHE, Current LOS: 8 Anticipated DC Date: Planned Disposition: Home Primary Insurance: MEDICAID [place] Discharge Planning Comments: CM met with patient to complete initial dc planning assessment. CM educated patient on the CM role and verbal consent given by patient to complete assessment. CM verified patient's address, phone number, and emergency contact phone numbers. Patient lives at home alone. At discharge patient plans to return and feels this is a safe discharge. CM discussed availability of home health, rehab services, and medical equipment. Patient denied known discharge needs at this time. Transportation provider at discharge will be his friend. States he does not know his phone number. Patient's speech seems slurred and garbled at time and I have informed his nurse, Crystal . CM will continue to follow and will assist as needed with dc plans/needs. Dividend Deposit Entry Clerk: Frida Guillen DCPIA - Discharge Planning Initial Assessment Updated by [email or web address]: Frida Guillen on 12/21/19 2:18 pm * Is the patient Alert and Oriented? Yes * PCP None * Pharmacy [facility] [address] * Preadmission Environment Home Alone * ADLs Independent * Equipment None * List name and contact numbers for known caregivers / representatives who currently or will assist patient after discharge: Juan Pablomoses Bustillo - friend - unknown * Verbal permission to speak to the caregivers and representatives has been obtained from the patient. Yes * Community resources currently utilized None * Additional services required to return to the preadmission environment? No * Can the patient safely return to the preadmission environment? Yes * Has this patient been hospitalized within the prior 30 days at any hospital? No Coverage Notice Reviewer: [id number] - Frida Guillen Notice Issued Date-Time: 12/24/2019 14:50 Notice Type: IM Discharge Notice Notice Delivered To: Family Member Relationship to Patient: Mother Well Head Pumper Name: Ruby Juarez Delivery Method: HAND - Hand Delivered Marivel Days: Prior Verbal Notification: Recipient Understood Notice: Yes Recipient Signature: Yes Med Rec Note Co-signed by Attending: Coverage Notice Comment: AME for [facility] Last DP export: 12/24/19 1:47 p Patient Name: JINA DELUNA Page [phone] at 1457 All edits/amendments must be made on the electronic document DICTATION DATE: 12/24/191456 MEDIA PRODUCTION OPERATOR: MARKEL 12/24/191456 RPT#: [id number] DC DATE: STATUS: ADM IN [facility] [address] [place] [address] END OF REPORT
--- NOTE | 2019-12-24 15:20 | NUR ---
SALINE LOCK REMOVED, DISCHARGE INSTRUCTIONS DISCUSSED WITH PARENTS AND TO CAR VIA WHEELCHAIR.
--- NOTE | 2019-12-26 09:21 | MORECARE ---
CASE MANAGEMENT DISCHARGE SUMMARY PATIENT: JINA DELUNA UNIT: [id number] ADM DATE: 12/13/19 AGE: 44 : 75 SEX: M ROOM/BED: D.4428 AUTHOR: AMBER PRASAD PHYSICIAN: REFERRING PHYSICIAN: COLIN MCGREGOR MD DATE OF SERVICE: 12/26/19 Discharge Plan Patient Name: JINA DELUNA Facility: [facility]:[place] : 1975 Planned Disposition: Home Anticipated Discharge Date: Discharge Date: 12/24/2019 Expected LOS: 0 Initial Reviewer: [email or web address] Initial Review Date: 12/21/2019 Generated: 12/26/19 10:21 am Comments DCP- Discharge Planning Updated by [id number]: Frida Guillen on 12/24/19 1:[address] Received DC orders. I have called [facility] and spoke with Sukhi and natalya and order faxed for home health. CM will continue to follow and assist with discharge planning/needs. DCP- Discharge Planning Updated by [email or web address]: Frida Guillen on 12/21/19 1:[address] Patient's mother has come in to visit. She states that patient lives with her mother. States that he is independent with all his care. Patient is ambulating without assist in room while I am in there. She states his PCP is Aleksandr Young in [place]. She denies known discharge needs at this time. Ruby Juarez [facility] - [phone] DCP- Discharge Planning Updated by [email or web address]: Frida Guillen on 12/21/19 1:[address] Patient Name: JINA DELUNA Admission Status: ER Accout number: [id number] Admission Date: 12-13-2019 : 1975 Admission Diagnosis:ACUTE KIDNEY FAILURE, UNSPECIFIED Attending: MECHE, Current LOS: 8 Anticipated DC Date: Planned Disposition: Home Primary Insurance: MEDICAID [place] Discharge Planning Comments: CM met with patient to complete initial dc planning assessment. CM educated patient on the CM role and verbal consent given by patient to complete assessment. CM verified patient's address, phone number, and emergency contact phone numbers. Patient lives at home alone. At discharge patient plans to return and feels this is a safe discharge. CM discussed availability of home health, rehab services, and medical equipment. Patient denied known discharge needs at this time. Transportation provider at discharge will be his friend. States he does not know his phone number. Patient's speech seems slurred and garbled at time and I have informed his nurse, Crystal . CM will continue to follow and will assist as needed with dc plans/needs. Sausage Canner: Frida Guillen DCPIA - Discharge Planning Initial Assessment Updated by [email or web address]: Frida Guillen on 12/21/19 2:18 pm * Is the patient Alert and Oriented? Yes * PCP None * Pharmacy [facility] [address] * Preadmission Environment Home Alone * ADLs Independent * Equipment None * List name and contact numbers for known caregivers / representatives who currently or will assist patient after discharge: Juan Pablo Bustillo - friend - unknown * Verbal permission to speak to the caregivers and representatives has been obtained from the patient. Yes * Community resources currently utilized None * Additional services required to return to the preadmission environment? No * Can the patient safely return to the preadmission environment? Yes * Has this patient been hospitalized within the prior 30 days at any hospital? No Coverage Notice Reviewer: [id number] - Frida Guillen Notice Issued Date-Time: 12/24/2019 14:50 Notice Type: IM Discharge Notice Notice Delivered To: Family Member Relationship to Patient: Mother Aoc Aadc Operations Staff Officer Name: Ruby Juarez Delivery Method: HAND - Hand Delivered Marivel Days: Prior Verbal Notification: Recipient Understood Notice: Yes Recipient Signature: Yes Med Rec Note Co-signed by Attending: Coverage Notice Comment: AME for [facility] Last DP export: 12/24/19 1:57 p Patient Name: JINA DELUNA Page [phone] at 0921 All edits/amendments must be made on the electronic document DICTATION DATE: 12/26/19920 COMPOSITE WORKER: MARKEL 12/26/19920 RPT#: [id number] DC DATE:12/24/19 STATUS: DIS IN [facility] [address] [place] [address] END OF REPORT
== END 2019-12-24 15:21 | disposition home health service (06) | DRG 208 ==
LOC: D.ER 00:31 → D.CVICU 03:06 → D.ICU 03:06 → D.M2 03:06 → D.ICU 12-14 10:28 → D.M2 12-18 18:23
PROVIDERS: Family Medicine; Family Medicine Adult Medicine; Internal Medicine Nephrology; Internal Medicine Pulmonary Disease; ADMIT Family Medicine; ATTEND Family Medicine
PROC: 5A1945Z Respiratory Ventilation, 24-96 Consecutive Hours (ICD-10-PCS; principal; 2019-12-13)
PROC: 0BH17EZ Insertion of Endotracheal Airway into Trachea, Via Natural or Artificial Opening (ICD-10-PCS; 2019-12-13)
DX: J96.01 Acute respiratory failure with hypoxia (principal); N17.0 Acute kidney failure with tubular necrosis; I50.31 Acute diastolic (congestive) heart failure; R53.2 Functional quadriplegia; J18.9 Pneumonia, unspecified organism; I63.412 Cerebral infarction due to embolism of left middle cerebral artery; I16.1 Hypertensive emergency; J81.1 Chronic pulmonary edema; F17.203 Nicotine dependence unspecified, with withdrawal; I13.0 Hypertensive heart and chronic kidney disease with heart failure and stage 1 through stage 4 chronic kidney disease, or unspecified chronic kidney disease; E87.0 Hyperosmolality and hypernatremia; I11.0 Hypertensive heart disease with heart failure; R00.0 Tachycardia, unspecified; R05 Cough; R79.89 Other specified abnormal findings of blood chemistry; E87.6 Hypokalemia; E83.42 Hypomagnesemia; L40.9 Psoriasis, unspecified; D72.829 Elevated white blood cell count, unspecified; R91.1 Solitary pulmonary nodule; N18.9 Chronic kidney disease, unspecified; Z86.73 Personal history of transient ischemic attack (TIA), and cerebral infarction without residual deficits

== ENCOUNTER 2019-12-25 03:12 | Emergency (ER) | payer MEDICAID ==
[~2019-12-25] VITALS: Ht 177.8 cm; Wt 81.8 kg
[~2019-12-25 03:12] MED LIST: ASPIRIN325 MG PO; BP MED; CATAPRES0.3 MG PO; ELIQUIS2.5 MG PO; LIPITOR10 MG PO; NORVASC5 MG PO; TOPROL XL50 MG PO
[2019-12-25 03:27] VITALS: Ht 177.8 cm; Wt 81.8 kg
[2019-12-25 04:30] LABS: BASOPHILS 0.6 % (0-2); EOSINOPHILS 2.7 % (0-7); HEMATOCRIT 37.1 % (42.0-54.0); HEMOGLOBIN 12.3 g/dL (13.5-17.5); IMMATURE GRANULOCYTES 0.5 % (0-5); LYMPHOCYTES 28.4 % (15-50); MCH 31.7 pg (26.0-34.0); MCHC 33.2 g/dL (31.0-37.0); MCV 95.6 fL (80.0-100.0); MEAN PLATELET VOLUME 10.1 fL (7.4-10.4); MONOCYTES 6.1 % (2-11); NEUTROPHILS 61.7 % (40-80); PLATELET COUNT 295 10x3/uL (130-400); RBC 3.88 10x6/uL (4.20-6.10); RDW 13.4 % (11.5-14.5); WBC 6.3 10x3/uL (4.8-10.8)
[2019-12-25 04:33] LABS: INR 1.04 (0.85-1.17); PROTIME 13.6 SECONDS (11.6-15.0)
[2019-12-25 04:34] LABS: CALC OSMOLALITY 286 mosm/kg (275-300); CALCIUM 8.6 mg/dL (8.5-10.1); CARBON DIOXIDE 23.1 mmol/L (21.0-32.0); CHLORIDE - SERUM 108 mmol/L (98-107); CREATININE - SERUM 5.1 mg/dL (0.6-1.3); GLUCOSE 116 mg/dL (74-106); POTASSIUM - SERUM 4.6 mmol/L (3.5-5.1); SODIUM 138 mmol/L (136-145); UREA NITROGEN 40 mg/dL (7-18); eGFR NON AFRICAN AMERICAN 13 mL/min (90-120)
[2019-12-25 04:48] LABS: ALBUMIN 3.1 g/dL (3.4-5.0); ALKALINE PHOSPHATASE 108 U/L (30-120); ALT (SGPT) 25 U/L (10-68); CKMB 1.1 U/L (0.0-3.6); CREATINE KINASE 248 UL (21-232); MAGNESIUM - SERUM 2.1 mg/dL (1.8-2.4); PROTEIN - SERUM 7.2 g/dL (6.4-8.2); TROPONIN-I 0.035 ng/mL (0.000-0.060)
[2019-12-25 05:04] VITALS: BP 145/94
== END 2019-12-25 04:55 | disposition home or self-care (01) ==
LOC: D.ER 03:12
PROVIDERS: Emergency Medicine
DX: I63.9 Cerebral infarction, unspecified (principal); R13.19 Other dysphagia; I12.9 Hypertensive chronic kidney disease with stage 1 through stage 4 chronic kidney disease, or unspecified chronic kidney disease; N18.9 Chronic kidney disease, unspecified

== ENCOUNTER 2019-12-27 00:30 | Inpatient (IN) | payer MEDICAID ==
[~2019-12-27] VITALS: Ht 177.8 cm; Wt 87.5 kg
[2019-12-27 01:35] LABS: BASOPHILS 0.6 % (0-2); EOSINOPHILS 1.8 % (0-7); HEMATOCRIT 35.5 % (42.0-54.0); HEMOGLOBIN 12.2 g/dL (13.5-17.5); IMMATURE GRANULOCYTES 0.5 % (0-5); LYMPHOCYTES 32.2 % (15-50); MCH 32.3 pg (26.0-34.0); MCHC 34.4 g/dL (31.0-37.0); MCV 93.9 fL (80.0-100.0); MEAN PLATELET VOLUME 10.1 fL (7.4-10.4); MONOCYTES 5.6 % (2-11); NEUTROPHILS 59.3 % (40-80); PLATELET COUNT 335 10x3/uL (130-400); RBC 3.78 10x6/uL (4.20-6.10); RDW 13.3 % (11.5-14.5)
[2019-12-27 01:39] LABS: WBC 8.3 10x3/uL (4.8-10.8)
[2019-12-27 01:44] LABS: CALC OSMOLALITY 282 mosm/kg (275-300); CARBON DIOXIDE 20.2 mmol/L (21.0-32.0); CHLORIDE - SERUM 106 mmol/L (98-107); CREATININE - SERUM 5.3 mg/dL (0.6-1.3); GLUCOSE 108 mg/dL (74-106); POTASSIUM - SERUM 4.2 mmol/L (3.5-5.1); SODIUM 137 mmol/L (136-145); UREA NITROGEN 36 mg/dL (7-18); eGFR NON AFRICAN AMERICAN 12 mL/min (90-120)
[2019-12-27 01:48] LABS: APTT 37.8 SECONDS (22.8-39.4); INR 1.07 (0.85-1.17); PROTIME 13.8 SECONDS (11.6-15.0)
[2019-12-27 02:00] LABS: ALKALINE PHOSPHATASE 105 U/L (30-120); BILIRUBIN - TOTAL 0.24 mg/dL (0.2-1.3); CKMB 1.4 U/L (0.0-3.6); CREATINE KINASE 198 UL (21-232); PROTEIN - SERUM 6.9 g/dL (6.4-8.2); TROPONIN-I 0.035 ng/mL (0.000-0.060)
[2019-12-27 02:01] LABS: ALT (SGPT) 23 U/L (10-68)
[2019-12-27 02:44] LABS: BILIRUBIN NEGATIVE (NEGATIVE); KETONE NEGATIVE (NEGATIVE); NITRITE NEGATIVE (NEGATIVE); UROBILINOGEN NORMAL mg/dL (< 2)
[2019-12-27 02:52] LABS: UDS - AMPHET NEGATIVE QUAL (NEGATIVE); UDS - BARB NEGATIVE QUAL (NEGATIVE); UDS - BENZO NEGATIVE QUAL (NEGATIVE); UDS - COCAINE NEGATIVE QUAL (NEGATIVE); UDS - OPIATE NEGATIVE QUAL (NEGATIVE); UDS - PCP NEGATIVE QUAL (NEGATIVE); UDS - THC NEGATIVE QUAL (NEGATIVE)
[2019-12-27 03:37] VITALS: BP 124/68
[2019-12-27 04:15] VITALS: BP 126/70; BMI 27.7
--- NOTE | 2019-12-27 07:15 | NUR ---
RECEIVED BEDSIDE REPORT. PT LAYING DOWN IN BED, EYES CLOSED, EVEN RESPIRATIONS. PIV TO LEFT AC, S/L AND PATENT, NO REDNESS OR SWELLING. BED LOW, RAILS X2, ALARM ON. CL IN REACH.
[2019-12-27 08:00] VITALS: BP 133/79
--- NOTE | 2019-12-27 09:15 | NUR ---
ADMINISTERED PT MEDICATIONS. PT ORIENTATED TO SELF, APPEARS TO BE HAVE SOME APHASIA. PT STATES HE BELIEVES HE IS WITH THE POLICE, REORIENTATED TO PLACE AND SITUATION, PT APPEARS TO UNDERSTAND WHAT I AM SAYING TO HIM. PERFORMED ECG WITH NO PROBLEMS. BED LOW, ALARM ON, CL IN REACH.
[2019-12-27 09:29] LABS: CKMB 1.5 U/L (0.0-3.6); TROPONIN-I 0.038 ng/mL (0.000-0.060)
[2019-12-27 09:30] LABS: CREATINE KINASE 332 UL (21-232)
--- NOTE | 2019-12-27 11:30 | NUR ---
MOTHER OF PT BROUGHT BAG WITH CLOTHES. SHE STATES THAT PT HAS BEEN VERY CONFUSED AND SHE DOESNT WANT HIM TO SEE HER BECAUSE SHE UPSETS HIM. REASSURED HER AND RECORDED NUMBER TO CALL WITH ANY CHANGES. ALEKS LEO [phone].
[2019-12-27 12:41] VITALS: BP 132/91
[2019-12-27 14:10] LABS: CKMB 1.2 U/L (0.0-3.6); CREATINE KINASE 328 UL (21-232); TROPONIN-I < 0.017 ng/mL (0.000-0.060)
--- NOTE | 2019-12-27 15:19 | NUR ---
Rehab Note- Acute Inpatient Rehab prescreen order receieved. THe patient has Medicaid benefits and cannot be accepted to [facility] Acute Inpatient Rehab. Thank you for this referral! Emi Ramos RN Clinical Liaison, [facility] Rehab
[2019-12-27 16:21] VITALS: BP 146/91
[2019-12-27 20:00] VITALS: BP 142/88
--- NOTE | 2019-12-27 20:55 | NUR ---
PATIENT PULLED OUT PIV. ATTEMPTED TO RESITE, PATIENT JUMPED SEVERAL TIMES AND SAID "NO NO NO NO!!"
[2019-12-27 21:07] LABS: CKMB 1.4 U/L (0.0-3.6); CREATINE KINASE 327 UL (21-232); TROPONIN-I 0.029 ng/mL (0.000-0.060)
--- NOTE | 2019-12-27 22:50 | NUR ---
PATIENT BECOMING INCREASINGLY IRRITABLE. DISCONNECTING HEIDE ALARM FROM WALL. WALKING OUT INTO HALLWAY, USING HAND TO MOUTH SIGNS SIGNALING CIGARETTE SMOKING. INSTRUCTED PATIENT SEVERAL TIMES THAT HE IS NOT TO SMOKE ON THIS FLOOR AND CAN NOT LEAVE UNIT TO SMOKE. PATIENT WILL VERBALIZE UNDERSTANDING BUT REPEATS SAME SCENARIO SEVERAL TIMES.
--- NOTE | 2019-12-27 23:34 | NUR ---
PATIENT BACK IN HALLWAY, TRYING TO LEAVE UNIT, NOT EASILY REDIRECTABLE. ASKED FOR ASSISTANCE FROM COWORKERS TO DIRECT PATIENT BACK TO ROOM. ADMINISTERED PRN HALDOL FOR AGGITATION PER ORDER.
[2019-12-28] VITALS: BP 141/92
[2019-12-28 02:05] LABS: CREATININE - URINE 43.8 mg/dL (30-125); PRO/CRE RATIO URINE 0.4 mg/g; PROTEIN - URINE 19.7 mg/dL (0.0-11.9)
--- NOTE | 2019-12-28 04:47 | NUR ---
PATIENT REFUSING LABS THIS AM.
--- NOTE | 2019-12-28 07:06 | MORECARE ---
CASE MANAGEMENT DISCHARGE SUMMARY PATIENT: JINA DELUNA UNIT: [id number] ADM DATE: 12/27/19 AGE: 44 : 75 SEX: M ROOM/BED: D.2203 AUTHOR: AMBER PRASAD PHYSICIAN: REFERRING PHYSICIAN: IDANIA PALUMBO MD DATE OF SERVICE: 12/28/19 Discharge Plan Patient Name: JINA DELUNA Facility: [facility]:[place] : 1975 Planned Disposition: Home Anticipated Discharge Date: Discharge Date: Expected LOS: Initial Reviewer: [email or web address] Initial Review Date: 12/27/2019 Generated: 12/28/19 8:05 am Comments DCP- Discharge Planning Updated by [email or web address]: Kanika Regina on 12/28/19 6:[address] SENT HIS FACESHEET TO [facility] FOR THEM TO TELL ME HOW MAY ACUTE DAYS HE HAS LEFT, TO TRY TO GET HIM IN THERE FOR REHAB External Providers External Provider: [facility] Next Contact Date: Service Request Date: Service Type: Resolution: Reviewer: Comments: Patient Name: JINA DELUNA Page [phone] at 0706 All edits/amendments must be made on the electronic document DICTATION DATE: 12/28/19704 SODA WORKER: MARKEL 12/28/19704 RPT#: [id number] DC DATE: STATUS: ADM IN [facility] [address] [place] [address] END OF REPORT
--- NOTE | 2019-12-28 07:46 | NUR ---
PATIENT SLEEPING. LUNGS CLEAR BILATERALLY. HEART SOUNDS S1 AND S2 HEARD IN ALL VALLE. BOWEL SOUNDS ACTIVE X 4. BED LOW. CALL HERRERA AND PERSONAL ITEMS IN REACH. WILL CONTINUE TO MONITOR.
[2019-12-28 08:21] LABS: BASOPHILS 0.8 % (0-2); EOSINOPHILS 2.9 % (0-7); HEMATOCRIT 37.4 % (42.0-54.0); HEMOGLOBIN 12.6 g/dL (13.5-17.5); IMMATURE GRANULOCYTES 0.4 % (0-5); LYMPHOCYTES 29.1 % (15-50); MCH 31.4 pg (26.0-34.0); MCHC 33.7 g/dL (31.0-37.0); MCV 93.3 fL (80.0-100.0); MEAN PLATELET VOLUME 9.8 fL (7.4-10.4); MONOCYTES 7.2 % (2-11); NEUTROPHILS 59.6 % (40-80); PLATELET COUNT 327 10x3/uL (130-400); RBC 4.01 10x6/uL (4.20-6.10); RDW 12.9 % (11.5-14.5)
[2019-12-28 08:23] LABS: WBC 5.1 10x3/uL (4.8-10.8)
[2019-12-28 08:40] LABS: BILIRUBIN - TOTAL 0.34 mg/dL (0.2-1.3); CARBON DIOXIDE 24.4 mmol/L (21.0-32.0); CREATININE - SERUM 5.3 mg/dL (0.6-1.3); MAGNESIUM - SERUM 1.9 mg/dL (1.8-2.4); POTASSIUM - SERUM 4.4 mmol/L (3.5-5.1)
[2019-12-28 09:01] VITALS: BP 145/89
[2019-12-28 11:22] VITALS: Ht 177.8 cm; Wt 87.5 kg
--- NOTE | 2019-12-28 12:37 | NUR ---
APPROACHED BY CASE MANAGEMENT STEVEN WHO STATES PATIENT NEEDS FLUIDS GOING. PATIENT REFUSES IV. WILL NOTIFY RENAL PER PRIMARY CARE PEST CONTROL OPERATOR EMILY REQUEST.
--- NOTE | 2019-12-28 12:42 | NUR ---
SPOKE WITH VILMA DE TO NOTIFY THAT PATIENT REFUSING IV AND CASE MANAGEMENT STATES NEEDS FLUIDS. PER VILMA "IF PATIENT IS REFUSING AN IV THERE'S NOT MUCH WE CAN DO."
--- NOTE | 2019-12-28 14:59 | NUR ---
PATIENT SLEEPING. WILL CONTINUE TO MONITOR.
--- NOTE | 2019-12-28 17:07 | NUR ---
OT NOTE: PT REQUIRED MOD/MAX A FOR SIMPLE BED MOB TASKS. PT COMPLETED FACE HYGIENE WITH MIN/MOD A. PT COMPLETED UE AROM TOLERATED. PT IS LETHARGIC. NURSING AWARE. [phone] THANK YOU,POOL SABA
[2019-12-28 17:56] VITALS: BP 138/92
--- NOTE | 2019-12-28 19:30 | NUR ---
PT IN BED, CONFUSED AT TIMES, RESP EVEN AND UNLABORED, NO DISTRESS NOTED, CL IN REACH, SR UPX 2.
[2019-12-28 19:53] VITALS: BP 145/93
--- NOTE | 2019-12-29 02:48 | NUR ---
I have reviewed this patient and I concur with the Shift Assessment completed by the Licensed Practical Nurse today this shift.
[2019-12-29 06:25] LABS: BASOPHILS 0.6 % (0-2); EOSINOPHILS 3.1 % (0-7); HEMATOCRIT 37.2 % (42.0-54.0); HEMOGLOBIN 12.4 g/dL (13.5-17.5); IMMATURE GRANULOCYTES 0.4 % (0-5); LYMPHOCYTES 34.5 % (15-50); MCH 31.1 pg (26.0-34.0); MCHC 33.3 g/dL (31.0-37.0); MCV 93.2 fL (80.0-100.0); MONOCYTES 6.2 % (2-11); NEUTROPHILS 55.2 % (40-80); PLATELET COUNT 339 10x3/uL (130-400); RBC 3.99 10x6/uL (4.20-6.10); RDW 13.1 % (11.5-14.5)
[2019-12-29 06:26] LABS: WBC 6.8 10x3/uL (4.8-10.8)
[2019-12-29 06:58] LABS: ALBUMIN 2.8 g/dL (3.4-5.0); ANION GAP 14.3 mmol/L (8-16); BILIRUBIN - TOTAL 0.23 mg/dL (0.2-1.3); CARBON DIOXIDE 22.8 mmol/L (21.0-32.0); CREATININE - SERUM 4.9 mg/dL (0.6-1.3); POTASSIUM - SERUM 4.1 mmol/L (3.5-5.1); PROTEIN - SERUM 6.7 g/dL (6.4-8.2)
--- NOTE | 2019-12-29 08:03 | NUR ---
resting in bed, no distress noted, no iv access, cont to monitor labs and confusion
[2019-12-29 08:45] VITALS: BP 102/74
[2019-12-29] MEDS ORDERED: NICODERM CQ1 EAC3 TRANSDERM (10:34)
[2019-12-29] MEDS ORDERED: CHRONULAC30 ML PO (10:35)
[2019-12-29] MEDS ORDERED: PEPCID PO (10:35)
--- NOTE | 2019-12-29 10:43 | MORECARE ---
CASE MANAGEMENT DISCHARGE SUMMARY PATIENT: JINA DELUNA UNIT: [id number] ADM DATE: 12/27/19 AGE: 44 : 75 SEX: M ROOM/BED: D.2203 AUTHOR: AMBER PRASAD PHYSICIAN: REFERRING PHYSICIAN: IDANIA PALUMBO MD DATE OF SERVICE: 12/29/19 Discharge Plan Patient Name: JINA DELUNA [facility] : 1975 Planned Disposition: Inpatient Rehab Anticipated Discharge Date: Discharge Date: Expected LOS: Initial Reviewer: [email or web address] Initial Review Date: 12/27/2019 Generated: 12/29/19 11:42 am Comments DCP- Discharge Planning Updated by [email or web address]: Kanika Regina on 12/28/19 6:[address] SENT HIS FACESHEET TO [facility] FOR THEM TO TELL ME HOW MAY ACUTE DAYS HE HAS LEFT, TO TRY TO GET HIM IN THERE FOR REHAB Last DP export: 12/28/19 6:06 Patient Name: JINA DELUNA Page [phone] at 1043 All edits/amendments must be made on the electronic document DICTATION DATE: 12/29/191041 INFORMATICA MDM DEVELOPER: MARKEL 12/29/19 104 RPT#: [id number] DC DATE: STATUS: ADM IN [facility] [address] [place] [address] END OF REPORT
--- NOTE | 2019-12-29 10:50 | MORECARE ---
CASE MANAGEMENT DISCHARGE SUMMARY PATIENT: JINA DELUNA UNIT: [id number] ADM DATE: 12/27/19 AGE: 44 : 75 SEX: M ROOM/BED: D.2203 AUTHOR: SHANICEDOC PHYSICIAN: REFERRING PHYSICIAN: IDANIA PALUMBO MD DATE OF SERVICE: 12/29/19 Discharge Plan Patient Name: JINA DELUNA Facility: [facility]:[place] : 1975 Planned Disposition: Inpatient Rehab Anticipated Discharge Date: Discharge Date: Expected LOS: Initial Reviewer: [email or web address] Initial Review Date: 12/27/2019 Generated: 12/29/19 11:49 am Comments DCP- Discharge Planning Updated by [email or web address]: Kanika Tapia on 12/29/19 9:[address] [facility] HAS ACCEPTED PATIENT TODAY IF DR SEXTON WILL AGREE TO SEE HIM AFTER HE IS DISCHARGED FROM [facility]. DR SEXTON IS IN AGREEMENT WITH THIS. PER HIS MOTHER HE WAS STAYING WITH HIM AND HIS GRANDMOTHER AND HE KEPT FALLING AND THEY COULD NOT PROVIDE THE HELP HE NEEDS AT THIS TIME. HE [facility] CURRENT WITH [facility]. PATIENT WILL BE DISCHARGING TO [facility] INPATIENT REHAB TODAY. CM WILL CONTINUE TO FOLLOW AND ASSIST NEEDED DCP- Discharge Planning Updated by [email or web address]: Kanika Tapia on 12/28/19 6:[address] SENT HIS FACESHEET TO [facility] FOR THEM TO TELL ME HOW MAY ACUTE DAYS HE HAS LEFT, TO TRY TO GET HIM IN THERE FOR REHAB DCPIA - Discharge Planning Initial Assessment Updated by [email or web address]: Kanika Tapia on 12/29/19 10:44 am * Is the patient Alert and Oriented? Yes * PCP WILL BE DR SEXTON * Pharmacy [facility] [address] * Preadmission Environment Home with Family * ADLs Partial Dependent * Partial ADLs (Assistance needed) Ambulation * List name and contact numbers for known caregivers / representatives who currently or will assist patient after discharge: JAY LEO [phone] * Verbal permission to speak to the caregivers and representatives has been obtained from the patient. N/A * Community resources currently utilized Home Health * Please name any agencies selected above. [facility] * Additional services required to return to the preadmission environment? Yes * Can the patient safely return to the preadmission environment? No * Has this patient been hospitalized within the prior 30 days at any hospital? Yes Last DP export: 12/29/19 9:43 Patient Name: JINA DELUNA Page [phone] at 1050 All edits/amendments must be made on the electronic document DICTATION DATE: 12/29/19 105 SLATE TRIMMER: MARKEL 12/29/19 1050 RPT#: [id number] DC DATE: STATUS: ADM IN [facility] [address] [place] [address] END OF REPORT
[2019-12-29 11:36] VITALS: BP 150/90
--- NOTE | 2019-12-29 14:27 | MORECARE ---
CASE MANAGEMENT DISCHARGE SUMMARY PATIENT: JINA DELUNA UNIT: [id number] ADM DATE: 12/27/19 AGE: 44 : 75 SEX: M ROOM/BED: D.2203 AUTHOR: SHANICEDOC PHYSICIAN: REFERRING PHYSICIAN: IDANIA PALUMBO MD DATE OF SERVICE: 12/29/19 Discharge Plan Patient Name: JINA DELUNA Facility: [facility]:[place] : 1975 Planned Disposition: Inpatient Rehab Anticipated Discharge Date: Discharge Date: Expected LOS: Initial Reviewer: [email or web address] Initial Review Date: 12/27/2019 Generated: 12/29/19 3:27 pm Comments DCP- Discharge Planning Updated by [email or web address]: Kanika Tapia on 12/29/19 1:[address] I SPOKE WITH PATIENT AND HE IS AGREEABLE TO INPATIENT REHAB AT [facility]. DCP- Discharge Planning Updated by [email or web address]: Kanika Tapia on 12/29/19 9:[address] [facility] HAS ACCEPTED PATIENT TODAY IF DR SEXTON WILL AGREE TO SEE HIM AFTER HE IS DISCHARGED FROM [facility]. DR SEXTON IS IN AGREEMENT WITH THIS. PER HIS MOTHER HE WAS STAYING WITH HIM AND HIS GRANDMOTHER AND HE KEPT FALLING AND THEY COULD NOT PROVIDE THE HELP HE NEEDS AT THIS TIME. HE WAS CURRENT WITH [facility]. PATIENT WILL BE DISCHARGING TO [facility] INPATIENT REHAB TODAY. CM WILL CONTINUE TO FOLLOW AND ASSIST NEEDED DCP- Discharge Planning Updated by [email or web address]: Kanika Tapia on 12/28/19 6:[address] SENT HIS FACESHEET TO [facility] FOR THEM TO TELL ME HOW MAY ACUTE DAYS HE HAS LEFT, TO TRY TO GET HIM IN THERE FOR REHAB DCPIA - Discharge Planning Initial Assessment Updated by [email or web address]: Kanika Tapia on 12/29/19 10:44 am * Is the patient Alert and Oriented? Yes * PCP WILL BE DR SEXTON * Pharmacy [facility] [address] * Preadmission Environment Home with Family * ADLs Partial Dependent * Partial ADLs (Assistance needed) Ambulation * List name and contact numbers for known caregivers / representatives who currently or will assist patient after discharge: JAY LEO [phone] * Verbal permission to speak to the caregivers and representatives has been obtained from the patient. N/A * Community resources currently utilized Home Health * Please name any agencies selected above. [facility] * Additional services required to return to the preadmission environment? Yes * Can the patient safely return to the preadmission environment? No * Has this patient been hospitalized within the prior 30 days at any hospital? Yes Coverage Notice Reviewer: [email or web address] Catracho Tapia Notice Issued Date-Time: 12/29/2019 10:45 Notice Type: Patient Choice Letter Notice Delivered To: Family Member Relationship to Patient: Mother Unit Reactor Operator Name: JAY Delivery Method: PHONE - Phone Marivel Days: Prior Verbal Notification: Yes Recipient Understood Notice: Recipient Signature: Med Rec Note Co-signed by Attending: Coverage Notice Comment: VIA PHONE WITH MOTHER JAY Guillen DP export: 12/29/19 9:50 Patient Name: JINA DELUNA Page [phone] at 1427 All edits/amendments must be made on the electronic document DICTATION DATE: 12/29/191426 FRAMEWORK DEVELOPER: MARKEL 12/29/19 142 RPT#: [id number] DC DATE: STATUS: ADM IN [facility] [address] [place] [address] END OF REPORT
--- NOTE | 2019-12-29 15:50 | NUR ---
REPORT CALLED TO KINA LOPEZ [facility], DC PAPERS AT DESK, AWAITING AMBULANCE TO TRANSFER
--- NOTE | 2019-12-29 16:07 | NUR ---
TAKEN BY AMBULANCE TO [facility], COPY OF CHART SENT ALONG
--- NOTE | 2019-12-29 16:38 | NUR ---
OT NOTE: PT COMPLETED ADL MOB WITH RW WITH CGA/MIN A. PT EXHIBITED A LATERAL LEAN WITH MOBILITY. PT COMPLETED [place] SOCKS AT EOB WITH CGA. PT EXHBIITED DECREASED BALANCE AND SAFETY AWARENESS. [phone] THANK YOU,POOL SABA
--- NOTE | 2019-12-31 08:57 | MORECARE ---
CASE MANAGEMENT DISCHARGE SUMMARY PATIENT: JINA DELUNA UNIT: [id number] ADM DATE: 12/27/19 AGE: 44 : 75 SEX: M ROOM/BED: D.2203 AUTHOR: SHANICEDOC PHYSICIAN: REFERRING PHYSICIAN: IDANIA PALUMBO MD DATE OF SERVICE: 12/31/19 Discharge Plan Patient Name: JINA DELUNA Facility: [facility]:Standard : 1975 Planned Disposition: Inpatient Rehab Anticipated Discharge Date: Discharge Date: 12/29/2019 Expected LOS: 0 Initial Reviewer: [email or web address] Initial Review Date: 12/27/2019 Generated: 12/31/19 9:56 am Comments DCP- Discharge Planning Updated by [email or web address]: Kanika Tapia on 12/29/19 1:[address] I SPOKE WITH PATIENT AND HE IS AGREEABLE TO INPATIENT REHAB AT [facility]. DCP- Discharge Planning Updated by [email or web address]: Kanika Tapia on 12/29/19 9:[address] [facility] HAS ACCEPTED PATIENT TODAY IF DR SEXTON WILL AGREE TO SEE HIM AFTER HE IS DISCHARGED FROM [facility]. DR SEXTON IS IN AGREEMENT WITH THIS. PER HIS MOTHER HE WAS STAYING WITH HIM AND HIS GRANDMOTHER AND HE KEPT FALLING AND THEY COULD NOT PROVIDE THE HELP HE NEEDS AT THIS TIME. HE WAS CURRENT WITH [facility]. PATIENT WILL BE DISCHARGING TO [facility] INPATIENT REHAB TODAY. CM WILL CONTINUE TO FOLLOW AND ASSIST NEEDED DCP- Discharge Planning Updated by [email or web address]: Kanika Tapia on 12/28/19 6:[address] SENT HIS FACESHEET TO [facility] FOR THEM TO TELL ME HOW MAY ACUTE DAYS HE HAS LEFT, TO TRY TO GET HIM IN THERE FOR REHAB DCPIA - Discharge Planning Initial Assessment Updated by [email or web address]: Kanika Tapia on 12/29/19 10:44 am * Is the patient Alert and Oriented? Yes * PCP WILL BE DR SEXTON * Pharmacy [facility] [address] * Preadmission Environment Home with Family * ADLs Partial Dependent * Partial ADLs (Assistance needed) Ambulation * List name and contact numbers for known caregivers / representatives who currently or will assist patient after discharge: JAY LEO [phone] * Verbal permission to speak to the caregivers and representatives has been obtained from the patient. N/A * Community resources currently utilized Home Health * Please name any agencies selected above. [facility] * Additional services required to return to the preadmission environment? Yes * Can the patient safely return to the preadmission environment? No * Has this patient been hospitalized within the prior 30 days at any hospital? Yes Coverage Notice Reviewer: [id number] Catracho Tapia Notice Issued Date-Time: 12/29/2019 10:45 Notice Type: Patient Choice Letter Notice Delivered To: Family Member Relationship to Patient: Mother Yarn Skeins Examiner Name: JAY Delivery Method: PHONE - Phone Marivel Days: Prior Verbal Notification: Yes Recipient Understood Notice: Recipient Signature: Med Rec Note Co-signed by Attending: Coverage Notice Comment: VIA PHONE WITH MOTHER JAY Guillen DP export: 12/29/19 1:27 Patient Name: JINA DELUNA Page [id number] at 0857 All edits/amendments must be made on the electronic document DICTATION DATE: 12/31/19855 TRIM MACHINE OPERATOR: MARKEL 12/31/1956 RPT#: [id number] DC DATE:12/29/19 STATUS: DIS IN [facility] [address] [place] [address] END OF REPORT
== END 2019-12-29 16:08 | DRG 948 ==
LOC: D.ER 00:30 → D.MS 03:19 → D.SDCHOLD 08:07 → D.MS 12-29 16:08
PROVIDERS: Family Medicine; Internal Medicine; ADMIT Family Medicine; ATTEND Family Medicine
DX: R41.82 Altered mental status, unspecified (principal); F17.203 Nicotine dependence unspecified, with withdrawal; I50.32 Chronic diastolic (congestive) heart failure; I13.0 Hypertensive heart and chronic kidney disease with heart failure and stage 1 through stage 4 chronic kidney disease, or unspecified chronic kidney disease; N18.4 Chronic kidney disease, stage 4 (severe); N17.9 Acute kidney failure, unspecified; Z91.81 History of falling; D64.9 Anemia, unspecified; I10 Essential (primary) hypertension; L40.9 Psoriasis, unspecified; F41.9 Anxiety disorder, unspecified; Z86.73 Personal history of transient ischemic attack (TIA), and cerebral infarction without residual deficits

== ENCOUNTER → 2020-08-28 08:29 | Outpatient (CLI) | payer MEDICAID ==
[2020-02-10 21:53] VITALS: BMI 25.8
[~2020-08-28 08:29] MED LIST changes: +CHRONULAC30 ML PO; +NICODERM CQ1 EAC3 TRANSDERM; +PEPCID PO
--- NOTE | 2020-08-29 14:32 | ST ---
PATIENT:JINA DELUNA MEDICAL RECORD: [id number] SEX: M LOCATION:[facility] ORDER #: ADMISSION DATE: 08/28/20 AGE OF PATIENT: 45 REFERRING PHYSICIAN: INTERPRETING PHYSICIAN: IDANIA LEY MD DATE OF SERVICE: 08/28/2020 NUCLEAR STRESS TEST FINDINGS: Gated is normal. Normal wall emotion, normal EF 67%. SPECT imaging in the short axis view shows a small fixed defect along the anterior base without significant reversibility. This confirmed the horizontal axis with a small anterior basilar defect without significant reversibility. Vertical axis: Vertical axis shows good uptake along lateral wall and septum. FINAL IMPRESSION: 1. Normal gated, normal wall motion, normal EF 67%. 2. Abnormal SPECT imaging with a fixed defect along the anterior base with no significant reversibility. FINAL RECOMMENDATION: This is stable scan with no evidence of ongoing active ischemia. LV function remains normal. Continued risk factor modification and medical management is recommended. TRANSINT:[id number] Voice Confirmation ID: [id number] DOCUMENT ID: [id number] IDANIA LEY MD at 1432 CC: [id number] DICTATION DATE: 08/28/20 1621 FIELD TRAINING AGENT: 08/29/20 0457 DEP CLI 08/28/20 [id number] [place] [address]
== END | disposition home or self-care (01) ==
LOC: D.HCCARDIO 08:29
PROVIDERS: ATTEND Internal Medicine Interventional Cardiology
DX: R94.31 Abnormal electrocardiogram [ECG] [EKG] (principal)